=== PATIENT | male | born 1960 | race Caucasian/White ===

== ENCOUNTER 2020-01-09 04:59 | Inpatient (IN) ==
--- NOTE | 2019-12-29 12:12 | History & Physical Report ---
Date of Service December 29, 2019 Assessment & Plan (1) Myelopathy concurrent with and due to spinal stenosis of cervical region: At this time the patient demonstrates with evidence of progressive cervical spinal stenosis with instability and subsequent myelopathy. Subsequently recommending urgent surgery in the form of C4 corpectomy and ACDF C5-C6. Hopefully this will halt the progression of his myelopathic symptoms with time again increased to function and decreased pain. Avoiding Present on Admission?: Yes History of Present Illness Chief Complaint: Bilateral arm numbness weakness. Primary Care Provider: Hemanth Elizalde This is a 59-year-old male who presents with worsening function of the bilateral upper extremities. He notes his left arm worse than the right. He has pain radiating down his arms into all fingertips. This concludes a component of numbness. Describes loss of coordination and fine motor skills. Allergies Allergy/AdvReac Type Severity Reaction Status Date / Time No Known Allergies Allergy Verified 11/13/19 12:16 Home Medications Home Medications Medication Instructions Recorded Confirmed Type amitriptyline 50 mg PO HS 11/13/19 11/13/19 History bupropion HCl 300 mg PO QAM 11/13/19 11/13/19 History buspirone 10 mg PO BID 11/13/19 11/13/19 History cholecalciferol (vitamin D3) 1,000 unit PO DAILY 11/13/19 11/13/19 History duloxetine 30 mg PO QID 11/13/19 11/13/19 History empagliflozin 25 mg PO QAM 11/13/19 11/13/19 History gabapentin 800 mg PO QID 11/13/19 11/13/19 History lisinopril 10 mg PO QAM 11/13/19 11/13/19 History lorazepam 0.5 mg PO TID PRN 11/13/19 11/13/19 History metformin 1,000 mg PO BID 11/13/19 11/13/19 History orphenadrine citrate 100 mg PO BID 11/13/19 11/13/19 History oxycodone 30 mg PO QID 11/13/19 11/13/19 History pantoprazole 40 mg PO QAM 11/13/19 11/13/19 History pioglitazone 45 mg PO QAM 11/13/19 11/13/19 History ranitidine HCl 150 mg PO HS 11/13/19 11/13/19 History simvastatin 10 mg PO PM 11/13/19 11/13/19 History tamsulosin 0.4 mg PO HS 11/13/19 11/13/19 History zolpidem 10 mg PO HS 11/13/19 11/13/19 History Past Med/Surg History Medical History (Updated 12/29/19 @ 12:11 by Allan Reddy DO) Anxiety BPH (benign prostatic hyperplasia) Depression Diabetes mellitus, type 2 Stable and controlled. Hgb A1C around 7.1 (10/2019) per patient GERD (gastroesophageal reflux disease) Well controlled and stable Hyperlipidemia Hypertension Numbness R/T CERVICAL SPINE ISSUES -- WEAK HAND LEFT Osteoarthritis Sleep apnea S/p UPPP surgery - did not have repeat test - no machine currently Surgical History (Updated 11/13/19 @ 12:38 by Tracie Cardenas RN) History of back surgery X3 History of carpal tunnel release of both wrists History of knee replacement procedure of left knee X2 History of knee replacement procedure of right knee X2 History of total right hip replacement History of uvulopalatopharyngoplasty Hx of colonoscopy Hx of shoulder surgery RIGHT Social History Preferred Language: Occitan Communication Ability: Effective Beliefs That Will Affect Care: None Current Living Situation: Spouse Feels Safe at Home: Yes Smoking Status: Current every day smoker (Smoking x 25 years ) Tobacco Type: cigarettes ; Cigarettes Per Day: 10 cigarrettes ; Second Hand Exposure: No ; Hx Alcohol Use: No Hx Substance Use: No Physical Exam Physical Exam: Patient is alert and oriented On exam he has hyperreflexive to both upper and lower extremity testing. Is bilateral Beth signs. His sensation appears to be symmetric and intact. He has weakness to bilateral grasp. Biceps and triceps are symmetric and intact. Heart is regular rate and rhythm Lungs clear to auscultation Results & Data Diagnostic Findings Cervical x-rays demonstrate multilevel spondylosis and loss of cervical lordosis. There is evidence of anterior listhesis at C3-4 and C4-5. MRI also demonstrates loss of cervical lordosis with evidence of neurocompression most impressive at C3-C4.
--- NOTE | 2020-01-04 19:44 | Anesthesiology Consultation ---
Date of Service January 04, 2020 Assessment & Plan (1) Encounter for pre-operative examination: PCP Clearance 11/22/19 = "Medically cleared for surgery pending preop testing." Addendum on 11/26/19= "labs, EKG, CXR all acceptable." L3-4 decompression, removal of hardware L2-S1 08/07/16= GA- Grade 1 view with MAC #3 with ETT #8.0- no issues noted per anesthesia record Ketamine Protocol = Pt current taking Oxycodone 30mg QID- therefore- pt is a candidate for Ketamine Protocol. Order written for DOS and will inform OR to plan for patient to be in ICU postoperatively. Will confirm with Dr. Mueller that, given covid crisis, ketamine protocol still being utilized. Chart Review Chart Review: Acceptable Risk for Surgery, entry level management initiated (by Martin Ochoa PA-C) and Patient seen in Pre Admission Testing (By Cristal Partida PA-C on 11/21/19) Teaching & Discussion Instructed NPO after midnight before surgery, except medications with 15 cc of water. Medication instructions provided according to the PAT guidelines. History Surgery Operation Date: 01/09/20 07:15 Proposed Procedures p C5-C6 Anterior Cervical Discectomy and Fusion, C4 Corpectomy, Spinal Cord Monitoring - Allan Reddy, Height/Weight Height: 5 ft 10 in Weight: 136.078 kg Allergies Allergy/AdvReac Type Severity Reaction Status Date / Time No Known Allergies Allergy Verified 01/04/20 12:12 Medications Home Medications Medication Instructions Recorded Confirmed Last Taken amitriptyline 50 mg PO HS 11/13/19 01/04/20 Unknown bupropion HCl 300 mg PO QAM 11/13/19 01/04/20 Unknown buspirone 10 mg PO BID 11/13/19 01/04/20 Unknown cholecalciferol (vitamin D3) 1,000 unit PO DAILY 11/13/19 01/04/20 Unknown duloxetine 30 mg PO QID 11/13/19 01/04/20 Unknown empagliflozin 25 mg PO QAM 11/13/19 01/04/20 Unknown gabapentin 800 mg PO QID 11/13/19 01/04/20 Unknown lisinopril 10 mg PO QAM 11/13/19 01/04/20 Unknown lorazepam 0.5 mg PO TID PRN 11/13/19 01/04/20 Unknown metformin 1,000 mg PO BID 11/13/19 01/04/20 Unknown orphenadrine citrate 100 mg PO BID 11/13/19 01/04/20 Unknown oxycodone 30 mg PO QID 11/13/19 01/04/20 Unknown pantoprazole 40 mg PO QAM 11/13/19 01/04/20 Unknown pioglitazone 45 mg PO QAM 11/13/19 01/04/20 Unknown ranitidine HCl 150 mg PO HS 11/13/19 01/04/20 Unknown simvastatin 10 mg PO PM 11/13/19 01/04/20 Unknown tamsulosin 0.4 mg PO HS 11/13/19 01/04/20 Unknown zolpidem 10 mg PO HS 11/13/19 01/04/20 Unknown Past Medical History Medical History Anxiety BPH (benign prostatic hyperplasia) Depression Diabetes mellitus, type 2 Stable and controlled. Hgb A1C around 7.1 (10/2019) per patient GERD (gastroesophageal reflux disease) Well controlled and stable Hyperlipidemia Hypertension Numbness R/T CERVICAL SPINE ISSUES -- WEAK HAND LEFT Osteoarthritis Sleep apnea S/p UPPP surgery - did not have repeat test - no machine currently Exercise / Class Metabolic Activity III < 4 Walking/Shop/Light housework ("crawls up the stairs" due to back pain - no CP or SOB; no issues with flat surface ambulation) Past Anesthesia History No Hx of Anesthesia Complications (no known anesthesia issues- post op complications s/p UPPP- "lungs filled with blood") and No Family Hx of Anesthesia Complications History of PONV No Hx of PONV and No Hx of Motion Sickness Social History Smoking Status: Current every day smoker tobacco type: cigarettes Smoking cigarettes per day: 10 Do You Dip or Chew Tobacco: No Hx Alcohol Use: No Hx Substance Use: No substance use type: does not use Review of Systems Patient denies chest pain, shortness of breath, dyspnea on exertion, cough, wheezing, palpitations. Physical Exam Vital Signs BP 102/65 P 72 TEMP 98.1 SP02 97% RESP 16 Constitutional + morbidly obese; no acute distress ENMT Mouth: + loose teeth (Mild- to front top teeth ); no TMJ clicking Thyromental Distance: > or= 3.5 Finger Breadths (4.0) Mallampati Class: I Missing molars. Neck + limited neck extension (mild ) Respiratory normal respiratory effort; no respiratory distress Auscultation: lungs clear to auscultation bilaterally; no wheezes Cardiovascular Rate/Rhythm: regular rate and regular rhythm Heart Sounds: no murmur Vessels: no carotid bruit Musculoskeletal Spine: + pain with cervical ROM Neurologic moves all extremities Psychiatric Orientation: alert Testing Laboratory Results 11/21/19 WBC: 7.67 H/H: 13.0/39.7 PLATELETS: 203 SODIUM: 134 POTASSIUM: 4.7 CHLORIDE: 101 CO2: 32 BUN: 17 CREATININE: 0.93 GLUCOSE: 133 PT: 10.3 PTT: 28.8 INR: 1.0 UA: negative for bacteria TYPE AND SCREEN: O+, ab screen - Electrocardiogram Date: 11/21/19 Findings: + NSR @ (68bpm) Left axis deviation. No change from 07/24/16. Chest X-Ray Date: 11/21/19 Findings: + NAD Chronic change including unaltered chronic pulmonary vascular congestion. No acute or superimposed process. Mild stable cardiomegaly. Echocardiogram Date: 08/05/16 EF: 55% LV Function: normal RWMA: + none Other Findings: + LVH (Mild/concentric) Grade 1 diastolic dysfunction. Mild WI. Moderate right and left atrial enlargement, mild right ventricular enlargement. Aortic root is mildly dilated. Stress Test Date: 08/05/16 Type: nuclear Resting EF: 55% Resting LV Function: normal Resting RWMA: + none Based upon EKG criteria, this test is negative. Based upon the nuclear imaging findings there is no evidence of myocardial ischemia or myocardial infarction. Study is normal.
[2020-01-09] MEDS ORDERED: SODIUM CHLORIDE 0.9% 250 ML IV PRN (05:00)
[2020-01-09] MEDS ORDERED: GABAPENTIN 600 MG DOSE PO SCH (06:00)
[2020-01-09] MEDS ORDERED: CEFAZOLIN 3000MG 72.5 ML IV SCH (06:00)
[2020-01-09] MEDS ORDERED: LR 15ML/HR IV SCH (06:00)
[2020-01-09] MEDS ORDERED: CeleBREX 200 MG CAP PO SCH (06:00)
[2020-01-09] MEDS ORDERED: ACETAMINOPHEN 500 MG TAB PO SCH (06:00)
[2020-01-09] MEDS ORDERED: PROPOFOL IV EMULSION 10 MG/ML 100 ML VIAL IV ONE (06:36)
[2020-01-09] MEDS ORDERED: LIDOCAINE HCL 2% 2 ML VIAL/AMP(20MG/ML) INFIL ONE (06:48)
[2020-01-09] MEDS ORDERED: PROPOFOL IV EMULSION 10 MG/ML 20 ML VIAL IV ONE ×2 (06:48→09:44)
[2020-01-09] MEDS ORDERED: fentaNYL citrate 100 MCG/2 ML VIAL ONE ×3 (06:48→11:06)
[2020-01-09] MEDS ORDERED: ONDANSETRON INJ 2 MG/ML 2 ML VIAL ONE (06:48)
[2020-01-09] MEDS ORDERED: ROCURONIUM BROMIDE 10 MG/ML 5 ML VIAL ONE (06:48)
[2020-01-09] MEDS ORDERED: DEXAMETHASONE SOD INJ 4 MG/ML VIAL ONE (06:48)
[2020-01-09] MEDS ORDERED: MIDAZOLAM HCL 1 MG/ML 2ML VIAL ONE (06:49)
[2020-01-09] MEDS ORDERED: BACITRACIN INJ 50,000 UNIT VIAL ONE (06:57)
[2020-01-09] MEDS ORDERED: ePHEDrine sulfate 50 MG/ML AMP IV PRN (07:07)
[2020-01-09] MEDS ORDERED: ATROPINE SULFATE 0.1 MG/ML 10ML SYR IV PRN (07:07)
[2020-01-09] MEDS ORDERED: fentaNYL citrate 100 MCG/2 ML VIAL IV PRN (07:07)
[2020-01-09] MEDS ORDERED: ONDANSETRON INJ 2 MG/ML 2 ML VIAL IV PRN ×2 (07:07→12:24)
[2020-01-09] MEDS ORDERED: HYDROmorphone INJ 2 MG/ML SYR/VIAL IV PRN (07:07)
--- NOTE | 2020-01-09 07:18 | History & Physical Bridge Note ---
Date of Service January 09, 2020 History & Physical Bridge Note I have examined the patient, reviewed the History & Physical and in the interval since the performance of the History & Physical I have noted the following changes of clinical significance: no changes noted
[2020-01-09] MEDS ORDERED: KETAMINE HCL INJ 50 MG/ML 10 ML VIAL ONE (07:58)
[2020-01-09] MEDS ORDERED: VASOPRESSIN 20 UNIT/ML VIAL ONE (08:09)
[2020-01-09] MEDS ORDERED: PHENYLEPHRINE HCL 10 MG/ML VIAL ONE (08:25)
[2020-01-09] MEDS ORDERED: FLOSEAL HEMOSTATIC MATRIX 10ML TOP ONE (08:35)
[2020-01-09] MEDS ORDERED: LARYING-O-JET KIT (LTA) ONE (08:46)
--- NOTE | 2020-01-09 10:39 | Operative Report ---
Post Operative Report Pre & Post Diagnosis Operation Date: 01/09/20 07:15 Pre-Op Diagnosis: Cervical spinal stenosis with myeloradiculopathy Morbid obesity Post-Op Diagnosis: Same I identified the patient and participated in the time-out.: Yes Procedure Operation Date: 01/09/20 07:15 Actual Procedures #1 anterior cervical corpectomy C4. #2 anterior cervical discectomy with bilateral foraminotomies C5-6 and C6-7. #3 anterior cervical arthrodesis C3-C5, C5-C6 and C6 and C7. #4 placement peek cage 25 mm in height at C3-C5 titanium cage 9 mm in height at C5-C6 and 8 mm in height at C5-6 to C7. #5 placement 5 complete screws from C3-C7. #6 placement locally harvested morselized autograft combined with DBM within the interbody cages. Surgeon Allan Reddy, DO Archivist Economic History Donna Anderson Estimated Blood Loss 50 Findings See Below The patient is 5 foot 10 inches tall weighing over 141 kg with a BMI in excess of 44. The patient's body habitus did add significant technical difficulty from patient positioning throughout the actual procedure itself and at least 50% increase to the operative time and increasing the risks of postoperative complications. Specimens None Indications This is a 59-year-old male that presents with the above-mentioned diagnosis and progressive decline in neurologic status. Subsequently we moved forward with an urgent multilevel anterior cervical decompression and fusion. Description of Procedure Patient was met with preop we discussed all questions were addressed. At that time patient was taken back to the operative suite underwent an patient placed in the supine position on a Eddie table with head Chao cigar head pegger. All bony prominences well-padded eyes inspected to ensure no external pressure placed upon them. This point the anterior cervical spine was prepped and draped in a normal sterile fashion. I then created a longitudinal incision along the right anterior aspect of the cervical spine extending from the C3 to see 6 disc basis. Sharp dissection with assistance of bipolar electrocautery performed down to and exposing the cervical spine spine from the C3-4 disc space to the C6-7 disc space. I then performed a complete discectomy of C3-4 out to the uncovertebral joints bilaterally followed by c 4 5. [place] distracting pins were then placed in C3 and C5 distract across the C4 vertebral body. I then performed a complete corpectomy of C4 including removal of all posterior annular fibers and longitudinal ligament to include bilateral foraminotomies. A 25 mm peek cage filled with locally harvested morselized autograft and DBM was then tapped in position. Then proceeded to C5-6 level again complete discectomy performed out to the uncovertebral's bilaterally. I include removal of all posterior annular fibers and longitudinal ligament for complete decompression and foraminotomies. Endplates were then burred to subcortical bleeding bone and a 9 mm titanium cage filled with locally harvested morselized autograft and DBM tapped in position. Was able to access the C6-7 level. I was concerned we would not be able to do so secondary to the patient's body habitus. Nevertheless it was quite accessible. Subsequently proceeded to remove the disc at C6-7 out to the uncovertebral's bilaterally. Include removal of all posterior annular fibers and longitudinal ligament to perform bilateral foraminotomies. An 8 mm titanium cage filled with locally harvested morselized autograft and DBM was then tapped in position. All distracting apparatus was removed all anterior osteophytes burred to a smooth cortical surface and a 5 complete screws applied with the assistance of fluoroscopy. The incision was then copiously irrigated explored to ensure no damage to surrounding structures remaining bleeding. A 10 round JOHN drain inserted. Incision was then closed with 2 Vicryl in the fashion of 4 Monocryl for final skin closure. Steri-Strips dressings placed. Patient waken taken to PACU stable addition. Please note Donna Anderson was present at the entire procedure involved the patient positioning complex portions of the surgery and final skin closure. Lastly spinal cord monitoring was utilized that the procedure no changes noted. I attest to the content of the Intraoperative Record and any orders documented therein. Any exceptions are noted below.
--- NOTE | 2020-01-09 11:58 | Fluoroscopy Report ---
FL cervical 2-3V CLINICAL HISTORY: Anterior discectomy and fusion. COMPARISON STUDY: None. FLUOROSCOPY TIME: 12 seconds. FLUOROSCOPIC IMAGES: 2 FINDINGS: These images demonstrate a C4 corpectomy. Anterior fusion is noted from C3 through C7. Mult ilevel discectomy is noted with interbody graft placement. Surgical drain is noted. Endotracheal tube is partially imaged. IMPRESSION: Fluoroscopy provided for C3-C7 anterior discectomy and fusion. ACT 112: Negative or not required by law. Electronically signed by: Abdifatah Clemente M.D. 01/09/2020 11:56 AM
[2020-01-09] MEDS ORDERED: RACEPINEPHRINE 2.25% NEBU SOLN 0.5 ML VIAL INH PRN (12:24)
[2020-01-09] MEDS ORDERED: LORazepam 0.5 MG/1 ML VIAL IV PRN (12:24)
[2020-01-09] MEDS ORDERED: HYDROmorphone INJ 0.5 MG/0.5 ML SYR IV PRN (12:24)
[2020-01-09] MEDS ORDERED: ALUMINUM/MAGNESIUM SUSP 30 ML UDC PO PRN (12:24)
[2020-01-09] MEDS ORDERED: DEXAMETHASONE SOD PHOSPHATE 8 MG in SYRINGE 0 ML IV PRN (12:24)
[2020-01-09] MEDS ORDERED: LORazepam 0.5 MG TAB PO PRN ×2 (12:24)
[2020-01-09] MEDS ORDERED: NALOXONE HCL 0.4 MG/1 ML VIAL/CARP IV PRN (12:24)
[2020-01-09] MEDS ORDERED: ONDANSETRON 4 MG OD TAB PO PRN (12:24)
[2020-01-09] MEDS ORDERED: FAMOTIDINE 20 MG TAB PO PRN (12:24)
[2020-01-09] MEDS ORDERED: PROMETHAZINE HCL 12.5 MG in SODIUM CHLORIDE 0.9% 50 ML IV PRN (12:24)
[2020-01-09] MEDS ORDERED: HYDROmorphone INJ 1 MG/ML SYRINGE IV PRN (12:24)
[2020-01-09] MEDS ORDERED: DO NOT ADMINISTER FLU VACCINE PRN (12:24)
[2020-01-09] MEDS ORDERED: SOD PHOSPHATE/SOD BIPHOSPHATE ENEMA 132 ML BTL PR PRN (12:24)
[2020-01-09] MEDS ORDERED: ACETAMINOPHEN 500 MG TAB PO PRN (12:24)
[2020-01-09] MEDS ORDERED: DO NOT ADMINISTER PNEUMOCOCCAL VACCINE PRN (12:24)
[2020-01-09] MEDS ORDERED: METOCLOPRAMIDE HCL INJ 5 MG/ML 2 ML VIAL IV PRN (12:24)
[2020-01-09] MEDS ORDERED: MAGNESIUM HYDROXIDE SUSP 30 ML UDC PO PRN (12:24)
[2020-01-09] MEDS ORDERED: ACETAMINOPHEN 1,000 MG/100 ML VIAL IV PRN (12:24)
[2020-01-09] MEDS: SODIUM CHLORIDE 0.9% 1000ML 1,000 ML IV SCH ×2 (12:53→19:16)
[2020-01-09] MEDS: GABAPENTIN 800 MG TAB PO SCH ×3 (13:39→20:32)
[2020-01-09] MEDS: POLYETHYLENE (MIRALAX) 17 GM PACK PO SCH ×2 (13:39→17:45)
[2020-01-09] MEDS: OXYCODONE HCL IR 30 MG TAB (IMMEDIATE RELEASE) PO PRN ×2 (13:39→17:50)
[2020-01-09] MEDS: DULOXETINE HCL 30 MG CAP PO SCH ×3 (13:39→20:32)
[2020-01-09] MEDS ORDERED: PHARMACY GLYCEMIC MGMT CONSULT PRN (13:42)
--- NOTE | 2020-01-09 13:44 | Anesthesiology Progress Note ---
Date of Service January 09, 2020 Anesthesia Post Procedure Vital Signs Vital Signs: Temp Pulse Pulse Resp BP Pulse Ox 01/09/20 13:13 36.6 C 88 16 131/85 95 01/09/20 12:42 36.6 C 86 16 122/73 95 01/09/20 12:13 36.6 C 88 18 133/80 96 01/09/20 11:50 37.4 C 88 17 137/73 96 01/09/20 11:40 87 16 111/75 97 01/09/20 11:30 88 12 131/75 97 01/09/20 11:20 87 12 140/75 97 01/09/20 11:10 37.2 C 89 12 139/78 97 01/09/20 06:05 36.8 C 89 20 144/81 H 97 Pain Intensity Lower Back: Pain Intensity: 7 Neck: Pain Intensity: 7 Transfer of Care Handoff Completed per policy Notes Mental Status: alert / awake / arousable and participated in evaluation Patient Amnestic to Procedure: Yes Nausea / Vomiting: adequately controlled Pain: adequately controlled Airway Patency, RR, SpO2: stable & adequate BP & HR: stable & adequate Hydration State: stable & adequate Anesthetic Complications: no major complications apparent and Pt Satisfied with anesthetic care
[2020-01-09] MEDS ORDERED: DEXTROSE 50% 50 ML SYRINGE IV PRN (14:00)
[2020-01-09] MEDS ORDERED: GLUCOSE 10 TABS/TUBE PO PRN (14:00)
[2020-01-09] MEDS ORDERED: CARBOHYDRATES FOR HYPOGLYCEMIA PO PRN (14:00)
[2020-01-09] MEDS ORDERED: GLUCAGON FOR INJ 1 MG VIAL SQ PRN (14:00)
[2020-01-09] MEDS ORDERED: GLUCOSE 40% GEL 15 GM TUBE PO PRN (14:00)
[2020-01-09] MEDS ORDERED: INSULIN GLARGINE SOLOSTAR 100 UNITS/ML 3 ML PEN SC ONE (14:15)
--- NOTE | 2020-01-09 14:32 | Consultation ---
Date of Consultation January 09, 2020 Assessment & Plan (1) Status post lumbar surgery: Post op day# 0 S/P ACDF C3-C7 by Dr Maureen RICCI# 50ml Post op doing well -pain management per ortho -wound management per ortho -PT/OT as appropriate -DVT prophylaxis per ortho -monitor H&H for acute blood loss anemia; pre-op Hgb: 13 (2) Diabetes mellitus, type 2: -Hold home oral meds -Insulin sliding scale, glycemic pharmacy on board (3) Hypertension: -Hold lisinopril and monitor BP, reasses in AM (4) Hyperlipidemia: -Continue simvastatin (5) Anxiety: -Continue duloxetine, Wellbutrin, buspirone (6) GERD (gastroesophageal reflux disease): -Continue PPI, H2 ryan (7) BPH (benign prostatic hyperplasia): -Continue tamsulosin DVT Prophylaxis -SCDs per ortho Disposition per primary service Follows with Dr Elizalde in [place], [place] for routine care Pt was seen and care coordinated with Dr Morel. See addendum Thank you for this consultation. We will follow the patient with you during their hospital stay. You can reach a [facility] of [facility] via pager @ [phone]. Supervising Physician Co-Signing Physician Notes I saw this patient with the physician patent legal assistant, I participated in the history, physical, review of systems, and physical exam. I reviewed the medications with the patient and the physician patent legal assistant and helped reconcile the medications. I helped take a detailed family and social history as well. I formulated the assessment and plan personally with the physician patent legal assistant and went over it with the patient. Physical Exam Gen-AAO x 3, NAD, Afebrile, +L Anterior Neck Incision c Drain in place, Obese Head-NCAT, EOMI, PERRLA, Anicteric Sclera, No Posterior Pharyngeal Erythema Neck-Supple, No JVD, No Thyromegaly, No Masses, No LAD, No Bruits Lungs-Clear to Auscultation Bilaterally, No Rales, No Rhonchi, No Wheezing, No Crepitus Chest-No S4, +S1, +S2, No S3, No Murmurs, No Rubs, No Gallops, No Ectopy Abdomen-Soft, Bowel Sounds Present, Non Tender, Non Distended, No Hepatomegaly, No Splenomegaly, No Palpable Masses, No Rebound, No Rigidity, No Guarding Musculoskeletal-Full Range of Motion Bilaterally, No CVAT Extremities-No Cyanosis, No Clubbing, No Edema Nuero-Cranial Nerves II-XII grossly intact, Motor WNL, DTRs WNL, Strength WNL, Non Focal Psych-Normal Mood History of Present Illness Requesting Physician: Dr Reddy Reason for Consultation: Post op medical management Attending Physician: Allan Reddy, DO History of Present Illness Pt is 59 y/o M with PMH DM II, HTN, HLD, anxiety, GERD, BPH seen in medical consultation s/p ACDF C3-C7 today by Dr. Reddy. Postop patient doing well and reports pain control. Denies any upper or lower extremity pain or paresthesias. Denies nausea, vomiting, chest pain, shortness of breath. Tolerating fluids without difficulty or choking. Had [place] cath which patient reports was just recently removed, has not urinated yet since. Reports had normal BM this morning. Denies fever/chills, diaphoresis, N/V/D/C, [place], dizziness, syncope, vision changes, orthopnea, palpitations, cough, sore throat, choking, otalgia, rhinorrhea, abdominal pain, extremity weakness, extremity edema, rashes. Allergies Allergy/AdvReac Type Severity Reaction Status Date / Time No Known Allergies Allergy Verified 01/09/20 05:23 Home Medications Home Medications Medication Instructions Recorded Confirmed Type amitriptyline 50 mg PO HS 11/13/19 01/09/20 History bupropion HCl 300 mg PO QAM 11/13/19 01/09/20 History buspirone 10 mg PO BID 11/13/19 01/09/20 History cholecalciferol (vitamin D3) 1,000 unit PO DAILY 11/13/19 01/09/20 History duloxetine 30 mg PO QID 11/13/19 01/09/20 History empagliflozin 25 mg PO QAM 11/13/19 01/09/20 History gabapentin 800 mg PO QID 11/13/19 01/09/20 History lisinopril 10 mg PO QAM 11/13/19 01/09/20 History lorazepam 0.5 mg PO TID PRN 11/13/19 01/09/20 History metformin 1,000 mg PO BID 11/13/19 01/09/20 History orphenadrine citrate 100 mg PO BID 11/13/19 01/09/20 History oxycodone 30 mg PO QID 11/13/19 01/09/20 History pantoprazole 40 mg PO QAM 11/13/19 01/09/20 History pioglitazone 45 mg PO QAM 11/13/19 01/09/20 History ranitidine HCl 150 mg PO HS 11/13/19 01/09/20 History simvastatin 10 mg PO PM 11/13/19 01/09/20 History tamsulosin 0.4 mg PO HS 11/13/19 01/09/20 History zolpidem 10 mg PO HS 11/13/19 01/09/20 History Patient History Medical History Anxiety BPH (benign prostatic hyperplasia) Depression Diabetes mellitus, type 2 Stable and controlled. Hgb A1C around 7.1 (10/2019) per patient GERD (gastroesophageal reflux disease) Well controlled and stable Hyperlipidemia Hypertension Numbness R/T CERVICAL SPINE ISSUES -- WEAK HAND LEFT Osteoarthritis Sleep apnea S/p UPPP surgery - did not have repeat test - no machine currently Surgical History History of back surgery X3 History of carpal tunnel release of both wrists History of knee replacement procedure of left knee X2 History of knee replacement procedure of right knee X2 History of total right hip replacement History of uvulopalatopharyngoplasty Hx of colonoscopy Hx of shoulder surgery RIGHT Family History (Updated 01/09/20 @ 14:33 by Sindy Camejo PA-C) Other Hypertension Social History Preferred Language: Beninese Communication Ability: Effective Checker Cashier Required: No Beliefs That Will Affect Care: None Current Living Situation: Spouse Other Information That Helps Us Care for You: No Feels Safe at Home: Yes Safety Concerns: Feels Safe At This Time Smoking Status: Current every day smoker Tobacco Type: cigarettes ; Cigarettes Per Day: 10 ; Do You Dip or Chew Tobacco: No ; Second Hand Exposure: No ; Tobacco Cessation Education Requested by Patient: No Hx Alcohol Use: No Hx Substance Use: No Review of Systems Review of Systems: All systems reviewed & are unremarkable except as noted in HPI & below Physical Exam Physical Exam: General: no distress, obese Head: normocephalic, atraumatic Eyes: PERRL, EOM's intact, conjunctiva non-injected, anicteric ENT: normal inspection external ears, nose, mucous membranes moist Neck: supple, trachea midline, +surgical dressing dry and intact to anterior neck, JOHN drain in place with serosanguineous drainage Lungs: clear, no respiratory distress, no wheezing/rhonchi/rales CV: RRR, no murmur, no pretibial edema Abd: normal BS, soft, non-tender Ext: no cyanosis, no calf tenderness; distal pulses intact, sensation to light touch intact, ROM upper and lower extremities intact Neuro: A&O x 3, no focal deficits noted, normal affect Skin: warm, dry Results & Data ([facility]) Vital Signs (Past 12 Hours) Vital Signs Temp Pulse Pulse Resp BP Pulse Ox 01/09/20 14:10 36.7 C 83 18 130/72 96 01/09/20 13:13 36.6 C 88 16 131/85 95 01/09/20 13:02 90 14 96 01/09/20 12:42 36.6 C 86 16 122/73 95 01/09/20 12:13 36.6 C 88 18 133/80 96 01/09/20 11:50 37.4 C 88 17 137/73 96 01/09/20 11:40 87 16 111/75 97 01/09/20 11:30 88 12 131/75 97 01/09/20 11:20 87 12 140/75 97 01/09/20 11:10 37.2 C 89 12 139/78 97 01/09/20 06:05 36.8 C 89 20 144/81 H 97
[2020-01-09] MEDS: HYDROCODONE/ACETAMOPHEN 5/325MG TAB PO PRN ×2 (16:13→20:41)
[2020-01-09] MEDS: CEFAZOLIN 2000MG 2,000 MG/15 ML SYR IV SCH (16:14)
[2020-01-09] MEDS: DEXAMETHASONE SOD PHOSPHATE 6 MG in SYRINGE 0 ML IV SCH (16:21)
[2020-01-09] MEDS: INSULIN ASPART 100 UNITS/ML 3 ML PEN SC SCH ×3 (17:53→20:46)
[2020-01-09] MEDS: ORPHENADRINE CITRATE 100 MG TABCR PO SCH (20:32)
[2020-01-09] MEDS ORDERED: TAMSULOSIN HCL 0.4 MG CAP PO SCH (21:00)
[2020-01-09] MEDS ORDERED: DOCUSATE SODIUM/SENNA 50/8.6MG TAB PO SCH (21:00)
[2020-01-09] MEDS ORDERED: ZOLPIDEM TARTRATE 10 MG TAB PO SCH (21:00)
[2020-01-09] MEDS ORDERED: SIMVASTATIN 10 MG TAB PO SCH (21:00)
[2020-01-09] MEDS ORDERED: FAMOTIDINE 20 MG TAB PO SCH (21:00)
[2020-01-09] MEDS ORDERED: AMITRIPTYLINE HCL 50 MG TAB PO SCH (21:00)
[2020-01-10] MEDS: DEXAMETHASONE SOD PHOSPHATE 6 MG in SYRINGE 0 ML IV SCH ×2 (00:15→07:50)
[2020-01-10] MEDS: CEFAZOLIN 2000MG 2,000 MG/15 ML SYR IV SCH (00:15)
[2020-01-10] MEDS: POLYETHYLENE (MIRALAX) 17 GM PACK PO SCH ×3 (00:16→12:20)
[2020-01-10] MEDS: INSULIN ASPART 100 UNITS/ML 3 ML PEN SC SCH ×4 (01:30→12:23)
[2020-01-10] MEDS: SODIUM CHLORIDE 0.9% 1000ML 1,000 ML IV SCH (01:46)
[2020-01-10] MEDS: OXYCODONE HCL IR 30 MG TAB (IMMEDIATE RELEASE) PO PRN ×2 (03:18→09:27)
[2020-01-10 07:04] LABS: Estimated Average Glucose 174 mg/dl; Hemoglobin A1C 7.7 % (4.5-5.6)
[2020-01-10] MEDS: HYDROCODONE/ACETAMOPHEN 5/325MG TAB PO PRN ×2 (07:49→12:19)
[2020-01-10] MEDS ORDERED: PIOGLITAZONE 45 MG PO SCH (09:00)
[2020-01-10] MEDS ORDERED: lisinopriL 10 MG TAB PO SCH (09:00)
[2020-01-10] MEDS ORDERED: PANTOprazole 40 MG TAB PO SCH (09:00)
[2020-01-10] MEDS ORDERED: INSULIN GLARGINE SOLOSTAR 100 UNITS/ML 3 ML PEN SC SCH (09:00)
[2020-01-10] MEDS ORDERED: BuPROPion XL 300 MG TABCR PO SCH (09:00)
[2020-01-10] MEDS ORDERED: NON-FORMULARY MEDICATION (Empagliflozin 25 MG) PO SCH (09:00)
[2020-01-10 09:24] VITALS: TEMP 98.4
[2020-01-10] MEDS: ORPHENADRINE CITRATE 100 MG TABCR PO SCH (09:26)
[2020-01-10] MEDS: GABAPENTIN 800 MG TAB PO SCH ×2 (09:26→12:21)
[2020-01-10] MEDS: DULOXETINE HCL 30 MG CAP PO SCH ×2 (09:26→12:21)
--- NOTE | 2020-01-10 10:48 | Discharge Summary ---
Date of Service January 10, 2020 Admission HPI Per Admitting Provider This is a 59-year-old male who presents with worsening function of the bilateral upper extremities. He notes his left arm worse than the right. He has pain radiating down his arms into all fingertips. This concludes a component of numbness. Describes loss of coordination and fine motor skills. Principal Diagnosis Cervical spinal stenosis with myeloradiculopathy Discharge Data Allergies Allergy/AdvReac Type Severity Reaction Status Date / Time No Known Allergies Allergy Verified 01/09/20 05:23 Consultations 01/09/20 12:24 Consult Hospitalist Routine Procedures Performed Operation Date: 01/09/20 07:15 Actual Procedures p C3-C7 Anterior Cervical Discectomy and Fusion, C5-C6, C6-C7 Corpectomy, Spinal Cord Monitoring(Not Applicable) - Allan Reddy DO Ordered Studies 01/09/20 07:00 FL cervical 2-3V Routine FL fluoroscopy <1hr Routine Hospital Course (1) Myelopathy concurrent with and due to spinal stenosis of cervical region: Patient went multilevel anterior cervical discectomy decompression and fusion tolerated as well as taken orthopedic for postoperative. Postop day 1 he felt his arm symptoms were improved. He is swallowing well. No hoarseness. JOHN drain decreasing appropriately. Excellent strength testing. Subsequently discharged home. Discharge orders instructions from the chart for further review. Total Time Total Time Spent Total Time Spent (In Minutes): 20 minutes Discharge Plan Discharge Items Patient Disposition: Home - Self-Care Reason For Visit: SPINAL STENOSIS, CERVICAL REGION Discharge Diagnosis: Cervical spinal stenosis with myeloradiculopathy Activity: As commented below Non-emergency contact: Primary Care Provider Call non-emergency contact if: you have any medication questions Follow-up/Referrals: Hemanth Elizalde D.O. [Primary Care Provider] - Diet: Regular Addtl Attending Provider Instructions: ACTIVITY RECOMMENDATIONS: SELF CARE INSTRUCTIONS AFTER CERVICAL FUSIONS 1. No smoking. Smoking drastically decreases the chance of a solid fusion. 2. No bending, lifting more than 5 pounds, or twisting (roll like a log when turning in bed). 3. You may shower 3 days after surgery. Thoroughly dry wound. Do not soak in the tub. 4. Cervical collar: Must be worn at all times including sleeping. You may remove the brace only to bath, eat and if you are sitting in a recliner. 5. Please walk as much as you can for exercise. Gradually increase the distance that you walk as your endurance increases. SPECIAL CARE INSTRUCTIONS: VERY IMPORTANT TO READ AND REVIEW A. Do not take any anti-inflammatory medications (i.e. Indocin, Advil, Aspirin, Naprosyn, Aleve, Motrin, etc.) as these may inhibit the chance of a solid fusion. Tylenol is okay to take. B. Your surgical incision has been closed with a cosmetic suture under the skin that will dissolve in about 6 weeks. In 14 days, you can use a pair of clean scissors and cut the suture that is left outside of the skin at the ends of your incision. C. Complications are uncommon, but please contact us if you have any signs or symptoms of: 1. wound infection (fever higher than 102.5 degrees F, redness, separation of wound, drainage, or increasing pain from the incision) 2. blood clots in legs (pain, swelling, redness and warmth in legs) 3. urinary tract infection (fever higher than 102.5 degrees, burning upon urination or increased frequency of urination) 4. nerve problems (inability to walk on your toes or heels, numbness, loss of bowel or bladder control) 5. any other symptoms that concern you. D. Please call the office at if you have any concerns or questi ons about your operation or recovery. MANAGING PAIN AFTER SPINAL SURGERY 1. Narcotic medication is intended for short-term use and will be provided for surgical pain. Surgical pain usually lasts for a period of 4-6 weeks. Narcotic medication includes Percocet, Vicodin, Darvocet, Tylenol #3 or Lortab. 2. Longer-term pain is more appropriately treated with non-narcotic medication such as Tylenol ES. 3. Muscle spasm is not appropriately treated with narcotics. Muscle relaxers such as Soma, Flexeril or Skelaxin can be used along with Tylenol ES. 4. Remember that we all live with some "aches and pains". This is not unusual or uncommon after an injury or as we get older. 5. We will provide appropriate medication within the normal guidelines of their prescribed use. We will also be very cautious and aware of potential abuse and extended duration of patients' medication needs. 6. Please allow 2-3 days to process refills. Prescriptions will not be mailed but must be picked up at the office. FOLLOW UP VISIT: Keep your scheduled follow-up appointment. Any questions, please call the office at . Pending Studies at Discharge: No Stand-Alone Forms: My [facility], Smoking Cessation Medications and DC Order Prescriptions: New oxycodone 5 mg tablet 5 mg PO Q6H PRN (Reason: pain, severe) Qty: 20 RF: 0 Continued metformin 500 mg Tablet 1,000 mg PO BID RF: 0 gabapentin 800 mg Tablet 800 mg PO QID RF: 0 oxycodone 30 mg Tablet 30 mg PO QID RF: 0 lisinopril 20 mg Tablet 10 mg PO QAM RF: 0 simvastatin 10 mg Tablet 10 mg PO PM RF: 0 pioglitazone 45 mg Tablet 45 mg PO QAM RF: 0 amitriptyline 50 mg Tablet 50 mg PO HS RF: 0 lorazepam 0.5 mg Tablet 0.5 mg PO TID PRN (Reason: PANIC ATTACKS) RF: 0 tamsulosin 0.4 mg Capsule 0.4 mg PO HS RF: 0 pantoprazole 40 mg Tablet,Delayed Release (Dr/Ec) 40 mg PO QAM RF: 0 ranitidine HCl 150 mg Tablet 150 mg PO HS RF: 0 buspirone 10 mg Tablet 10 mg PO BID RF: 0 orphenadrine citrate 100 mg Tablet Extended Release 100 mg PO BID RF: 0 zolpidem 10 mg Tablet 10 mg PO HS RF: 0 bupropion HCl 300 mg Tablet Extended Release 24 Hr 300 mg PO QAM RF: 0 duloxetine 30 mg Capsule,Delayed Release(Dr/Ec) 30 mg PO QID RF: 0 cholecalciferol (vitamin D3) 25 mcg (1,000 unit) Tablet 1,000 unit PO DAILY RF: 0 empagliflozin 25 mg Tablet 25 mg PO QAM RF: 0 Discharge Orders: Discharge Order (Routine); Ordered 01/10/20 Ordered By: Allan Bach/Other Patient Handouts: Diabetes Type 2 Managing Admission Data Admit Date/Time: 01/09/20 11:14 Attending Provider: Allan Reddy Admit Provider: Allan Reddy Primary Care Provider: Hemanth Elizalde Other Providers: Dick Arshad
[2020-01-10 11:42] VITALS: O2SAT 96
[2020-01-10 11:47] VITALS: PULSE 72
[2020-01-10 12:04] VITALS: BP 123/66
--- NOTE | 2020-01-10 13:43 | Hospitalist Progress Note ---
Date of Service January 10, 2020 Assessment & Plan (1) Status post lumbar surgery: S/P multilevel anterior cervical discectomy decompression and fusion POD #1 Orthopedic surgery on board pain is controlled Continue wound care Activity as per Ortho (2) Diabetes mellitus, type 2: Hold home oral meds while hospitalized Insulin sliding scale, glycemic pharmacy on board Monitor BGs (3) Hypertension: Resume lisinopril (4) Hyperlipidemia: Continue simvastatin (5) Anxiety: Continue duloxetine, Wellbutrin, buspirone (6) GERD (gastroesophageal reflux disease): Continue PPI, H2 ryan (7) BPH (benign prostatic hyperplasia): Continue tamsulosin DVT Px As per Ortho Disposition As per primary service Admission and Anticipated Discharge Date Admission Date: January 09, 2020 Subjective Patient is seen and examined at bedside Neck pain is well controlled Offers no other complaints Eager to get discharged Denies any chest pain, shortness of breath, dizziness, nausea, abdominal pain Review of Systems Review of Systems: All systems reviewed & are unremarkable except as noted in HPI & below Physical Exam Physical Exam: Physical Exam: Vitals signs as noted above General Appearance:Moderately built and nourished, no apparent distress Head: normocephalic, Atraumatic Eyes: normal inspection, EOMI Neck: supple, Trachea midline, +Neck collar, +drain Respiratory/Chest: Normal breath sounds, CTA Cardiovascular: S1, S2, No murmur Abdomen/GI:Soft, Non tender, Bowel sounds present Extremities/Musculoskelatal:normal inspection, no edema Neurologic/Psych:AAOX3, grossly no focal neurological deficits Skin: normal color, warm Results & Data Results & Data ([facility]) Vital Signs (Past 12 Hours) Vital Signs Temp Pulse Pulse Resp BP BP Pulse Ox 01/10/20 12:02 36.9 C 72 18 123/66 96 01/10/20 11:15 36.9 C 72 18 132/73 96 01/10/20 11:07 94 H 17 96 01/10/20 09:20 36.9 C 65 16 134/80 93 01/10/20 07:43 36.8 C 64 18 135/80 97 01/10/20 07:10 66 15 94 01/10/20 05:15 36.6 C 64 18 147/82 H 95 01/10/20 03:41 69 16 96 01/10/20 03:15 36.7 C 61 16 141/82 H 95
[2020-01-11] MEDS ORDERED: bisacodyL 10 MG SUPP PR PRN (10:41)
== END 2020-01-10 13:05 | disposition home or self-care (01) | DRG 472 ==
LOC: ASU 04:59 → 3E 11:14

== ENCOUNTER 2021-03-28 05:42 | Inpatient (IN) ==
--- NOTE | 2021-03-11 13:33 | PAT Medication Instructions ---
Medication Instructions Date of Service March 11, 2021 Home Medications amitriptyline 50 mg PO HS bupropion HCl 300 mg PO QAM buspirone 10 mg PO BID cholecalciferol (vitamin D3) 1,000 unit PO QAM duloxetine 30 mg PO QID empagliflozin [Jardiance] 25 mg PO QAM gabapentin 800 mg PO QID lisinopril 10 mg PO QAM lorazepam 0.5 mg PO TID PRN metformin 1,000 mg PO BID oxycodone 30 mg PO QID pantoprazole 40 mg PO QAM pioglitazone [Actos] 45 mg PO QAM simvastatin 10 mg PO PM tamsulosin 0.4 mg PO HS semaglutide [Ozempic] 0.5 mg SUBCUT WK Continue as directed semaglutide [Ozempic] 0.5 mg SUBCUT WK DO NOT take the morning of surgery cholecalciferol (vitamin D3) 1,000 unit PO QAM empagliflozin [Jardiance] 25 mg PO QAM lisinopril 10 mg PO QAM metformin 1,000 mg PO BID pioglitazone [Actos] 45 mg PO QAM Take morning of surgery With a small sip of water, OTHERWISE NOTHING TO EAT OR DRINK AFTER MIDNIGHT: bupropion HCl 300 mg PO QAM buspirone 10 mg PO BID duloxetine 30 mg PO QID gabapentin 800 mg PO QID lorazepam 0.5 mg PO TID PRN (if needed) oxycodone 30 mg PO QID (okay to take up to 4 hours prior to surgery if needed) pantoprazole 40 mg PO QAM Take evening before surgery amitriptyline 50 mg PO HS buspirone 10 mg PO BID duloxetine 30 mg PO QID gabapentin 800 mg PO QID lorazepam 0.5 mg PO TID PRN (if needed) metformin 1,000 mg PO BID oxycodone 30 mg PO QID simvastatin 10 mg PO PM tamsulosin 0.4 mg PO HS Other Notes If you have any questions please call us at [phone] or [phone] or [phone] or [phone]
--- NOTE | 2021-03-14 10:32 | Anesthesiology Consultation ---
Date of Service March 14, 2021 Assessment & Plan (1) Encounter for pre-operative examination: - Awaiting cardiology-ordered stress test and final cardiology clearance. - COVID screening: Per assessment on 03/14: Travel screen negative, no known COVID-19 positive contacts. Patient vaccinated. Patient reports cough x approximately one week- he states this has been progressively improving and now is only an occasional "tickle" with dry cough. Patient advised to contact PCP/PAT if cough persistent/worsening prior to surgery. Surgeon arranging preop COVID testing. Awaiting results. - Check BSG AM DOS - S/P C4 corpectomy, C5-C6 ACDF (01/09/20): Grade 1 view, glidescope #4, ETT 7.5, atraumatic attempt x1 at [facility] Chart Review Chart Review: Patient seen in Pre Admission Testing Teaching & Discussion Pre-Anesthesia Teaching/Discussion Notes: Instructed NPO after midnight before surgery,except medications with 15 cc of water. Medication instructions provided according to the PAT guidelines. History Surgery Operation Date: 03/28/21 09:15 Proposed Procedures p Spine; C7-T1 Posterior Cervical Decompression, C5-T3 Fusion, Spinal Cord Monitoring - Allan Reddy, Height/Weight Height: 5 ft 11 in Weight: 134.8 kg Allergies Allergy/AdvReac Type Severity Reaction Status Date / Time No Known Allergies Allergy Verified 03/11/21 11:20 Medications Home Medications Medication Instructions Recorded Confirmed Last Taken amitriptyline 50 mg PO HS 11/13/19 03/11/21 01/08/20 21:00 bupropion HCl 300 mg PO QAM 11/13/19 03/11/21 01/09/20 03:30 buspirone 10 mg PO BID 11/13/19 03/11/21 01/09/20 03:30 cholecalciferol (vitamin D3) 1,000 unit PO QAM 11/13/19 03/11/21 01/08/20 duloxetine 30 mg PO QID 11/13/19 03/11/21 01/09/20 03:30 empagliflozin [Jardiance] 25 mg PO QAM 11/13/19 03/11/21 01/08/20 20:00 gabapentin 800 mg PO QID 11/13/19 03/11/21 01/09/20 03:30 lisinopril 10 mg PO QAM 11/13/19 03/11/21 01/08/20 lorazepam 0.5 mg PO TID PRN 11/13/19 03/11/21 01/09/20 03:30 metformin 1,000 mg PO BID 11/13/19 03/11/21 01/08/20 08:00 oxycodone 30 mg PO QID 11/13/19 03/11/21 01/09/20 03:30 pantoprazole 40 mg PO QAM 11/13/19 03/11/21 01/09/20 03:30 pioglitazone [Actos] 45 mg PO QAM 11/13/19 03/11/21 01/08/20 simvastatin 10 mg PO PM 11/13/19 03/11/21 01/08/20 20:00 tamsulosin 0.4 mg PO HS 11/13/19 03/11/21 01/08/20 20:00 semaglutide [Ozempic] 0.5 mg SUBCUT WK 03/11/21 03/11/21 Unknown Past Medical History Medical History Anemia Anxiety BPH (benign prostatic hyperplasia) Chronic back pain Degenerative disc disease Depression Diabetes mellitus, type 2 NIDDM (oral + injectable) GERD (gastroesophageal reflux disease) Controlled Hyperlipidemia Hypertension Morbid obesity Numbness r/t cervical spine issues (left hand weakness) Osteoarthritis Peripheral neuropathy Sleep apnea S/p UPPP (no retesting after surgery/no current device) Exercise / Class Metabolic Activity II 4-5 Yardwork/Stairs/Walk up hill (one FS (no CP, no SOB)) Past Family History Family History Other Hypertension No family history of adverse response to anesthesia Past Surgical History Surgical History History of back surgery X3 History of cardiac cath Several years ago (no stents) History of carpal tunnel release of both wrists History of knee replacement procedure of left knee X2 History of knee replacement procedure of right knee X2 History of total right hip replacement History of uvulopalatopharyngoplasty Hx of colonoscopy Hx of shoulder surgery Right S/P cervical spinal fusion C4 corpectomy, C5-C6 ACDF (01/09/20): Grade 1 view, glide scope #4, ETT 7.5, atraumatic attempt x1 at [facility] Past Anesthesia History No Hx of Anesthesia Complications and No Family Hx of Anesthesia Complications History of PONV No Hx of PONV and No Hx of Motion Sickness Social History Smoking Status: Current every day smoker tobacco type: cigarettes Smoking cigarettes per day: 10 cigs/day (tobacco use x 30 years) Do You Dip or Chew Tobacco: No Hx Alcohol Use: No Hx Substance Use: No substance use type: does not use Review of Systems Patient reports cough x approximately one week- he states this has been progressively improving and now is only an occasional "tickle" with dry cough. Patient denies chest pain, shortness of breath, dyspnea on exertion, fever, chills, wheezing, palpitations. Physical Exam Vital Signs VITALS BP 116/73 P 69 TEMP SP02 96%RA RESP 18 PHYSICAL Decreased cervical extension range of motion (2/2 cervicalgia). Full TMJ range of motion. TMD 3.5 finger breaths Mallampati Score 3 Dentition: several teeth missing "all over"/~15 remaining teeth per patient Lungs: mild inspiratory wheezes Cardiac: regular rate and rhythm, distant heart sounds Spine: normal Carotid arteries: negative bruit Extremities: no edema Lab Results Anesthesia Preop Results Results Anesthesia Widget: WBC 7.23 K/uL (4.8-10.8) 03/14/21 Hgb 12.9 g/dL (14.0-18.0) L 03/14/21 Hct 39.6 % (42-52) L 03/14/21 Plt 260 K/uL (130-400) 03/14/21 Na 135 mmol/L (136-145) L 03/14/21 K 4.8 mmol/L (3.5-5.1) 03/14/21 Cl 104 mmol/L (98-107) 03/14/21 CO2 28 mmol/L (21-32) 03/14/21 BUN 13 mg/dl (7-18) 03/14/21 Creat 0.84 mg/dl (0.6-1.4) 03/14/21 Glucose Level 93 mg/dl (70-99) 03/14/21 PT 9.8 Seconds (9.0-12.0) 03/14/21 PTT 29.1 Seconds (21.0-31.0) 03/14/21 INR 1.0 (0.9-1.1) 03/14/21 HA1c 6.5 % (4.5-5.6) H 03/14/21 Urine Color Yellow 03/14/21 Urine Appearance Clear (Clear) 03/14/21 Urine pH 5.0 (4.5-7.5) 03/14/21 Urine Specific Fortine 1.029 (1.000-1.030) 03/14/21 Urine Protein Negative (Negative) 03/14/21 Urine Glucose (UA) 3+ (Negative) H 03/14/21 Urine Ketones Negative (Negative) 03/14/21 Urine Blood Negative (Negative) 03/14/21 Urine Nitrite Negative (Negative) 03/14/21 Urine Bilirubin Negative (Negative) 03/14/21 Urine Urobilinogen Negative (Negative) 03/14/21 Urine Leukocyte Esterase Negative (Negative) 03/14/21 Blood Type O Positive 03/14/21 Antibody Screen NEGATIVE 03/14/21 Testing Electrocardiogram Date: 03/07/21 SR at 87bpm. LAD. Septal infarct > echo done 03/11/21 Chest X-Ray Date: 03/14/21 FINDINGS: PA and lateral chest radiographs are compared to study dated 11/21/2019. The heart is top normal for projection. Emphysematous change is suggested. Chronic interstitial thickening is similar to previous. There is bibasilar scarring/atelectasis. No airspace consolidation or pleural effusion is identified. There is no pneumothorax. The skeletal structures are osteopenic. The bony thorax appears intact. Fusion hardware is noted in the lower cervical and upper lumbar spine. IMPRESSION: No active disease in the chest. Suspect emphysema. Echocardiogram Date: 03/11/21 EF 60%. No regional motion abnormality. Mild concentric LVH. Mild biatrial enlargement. Mild RVE. Mild aortic root dilation. Ascending aorta is also dilated measuring 4.4 cm. Trace to mild MR. Trace to mild TR. Grade 1 diastolic dysfunction.
[2021-03-28] MEDS ORDERED: ACETAMINOPHEN 500 MG TAB PO SCH (06:00)
[2021-03-28] MEDS ORDERED: CeleBREX 200 MG CAP PO SCH (06:00)
[2021-03-28] MEDS ORDERED: GABAPENTIN 600 MG DOSE PO SCH (06:00)
[2021-03-28] MEDS ORDERED: LR 15ML/HR IV SCH (06:00)
[2021-03-28] MEDS ORDERED: REMIFENTANIL HCL 1 MG VIAL ONE (07:17)
[2021-03-28] MEDS ORDERED: PROPOFOL IV EMULSION 10 MG/ML 100 ML VIAL IV ONE (07:17)
[2021-03-28] MEDS ORDERED: BUPIVACAINE/EPINEPHRINE 0.5% MPF 1:200,000 30 ML VIAL ONE (07:26)
--- NOTE | 2021-03-28 07:30 | History & Physical Bridge Note ---
Date of Service March 28, 2021 History & Physical Bridge Note I have examined the patient, reviewed the History & Physical and in the interval since the performance of the History & Physical I have noted the following changes of clinical significance: no changes noted
--- NOTE | 2021-03-28 07:31 | History & Physical Report ---
Date of Service March 28, 2021 Assessment & Plan (1) Cervical stenosis of spinal canal: Plan: C7-T1 posterior cervical decompression, C5-T3 fusion History of Present Illness Chief Complaint: Neck and arm pain Primary Care Provider: Hemanth Elizalde This is a 60-year-old male presents with car persistent neck and arm pain after failing course of nonoperative care is here for surgical invention. Allergies Allergy/AdvReac Type Severity Reaction Status Date / Time No Known Allergies Allergy Verified 03/28/21 06:31 Home Medications Medication Instructions Recorded Confirmed Type amitriptyline 50 mg tablet 50 mg PO HS 11/13/19 03/28/21 History bupropion HCl 300 mg 24 hr tablet, 300 mg PO QAM 11/13/19 03/28/21 History extended release buspirone 10 mg tablet 10 mg PO BID 11/13/19 03/28/21 History cholecalciferol (vitamin D3) 25 1,000 unit PO QAM 11/13/19 03/28/21 History mcg (1,000 unit) tablet duloxetine 30 mg capsule,delayed 30 mg PO QID 11/13/19 03/28/21 History release empagliflozin 25 mg tablet 25 mg PO QAM 11/13/19 03/28/21 History (Jardiance) gabapentin 800 mg tablet 800 mg PO QID 11/13/19 03/28/21 History lisinopril 20 mg tablet 10 mg PO QAM 11/13/19 03/28/21 History lorazepam 0.5 mg tablet 0.5 mg PO TID PRN 11/13/19 03/11/21 History metformin 500 mg tablet 1,000 mg PO BID 11/13/19 03/28/21 History oxycodone 30 mg tablet 30 mg PO QID 11/13/19 03/28/21 History pantoprazole 40 mg tablet,delayed 40 mg PO QAM 11/13/19 03/28/21 History release pioglitazone 45 mg tablet (Actos) 45 mg PO QAM 11/13/19 03/28/21 History simvastatin 10 mg tablet 10 mg PO PM 11/13/19 03/28/21 History tamsulosin 0.4 mg capsule 0.4 mg PO HS 11/13/19 03/28/21 History semaglutide (Ozempic) 0.5 mg SUBCUT WK 03/11/21 03/28/21 History acetaminophen 500 mg tablet 1,000 mg PO QID PRN 03/28/21 03/28/21 History (Tylenol Extra Strength) Past Med/Surg History Medical History (Updated 03/28/21 @ 07:30 by Allan Reddy DO) Anemia Anxiety BPH (benign prostatic hyperplasia) Chronic back pain Degenerative disc disease Depression Diabetes mellitus, type 2 NIDDM (oral + injectable) GERD (gastroesophageal reflux disease) Controlled Hyperlipidemia Hypertension Morbid obesity Numbness r/t cervical spine issues (left hand weakness) Osteoarthritis Peripheral neuropathy Sleep apnea S/p UPPP (no retesting after surgery/no current device) Testicle lump Surgical History History of back surgery X3 History of cardiac cath Several years ago (no stents) History of carpal tunnel release of both wrists History of knee replacement procedure of left knee X2 History of knee replacement procedure of right knee X2 History of total right hip replacement History of uvulopalatopharyngoplasty Hx of colonoscopy Hx of shoulder surgery Right S/P cervical spinal fusion C4 corpectomy, C5-C6 ACDF (01/09/20): Grade 1 view, glide scope #4, ETT 7.5, atraumatic attempt x1 at [facility] Family History Other Hypertension No family history of adverse response to anesthesia Social History Smoking Status: Current every day smoker Cigarettes Per Day: 10; Second Hand Exposure: No; Do You Dip or Chew Tobacco: No; Tobacco Cessation Education Requested by Patient: No Hx Alcohol Use: No Hx Substance Use: No Preferred Language: Serbian Communication Ability: Effective House Principal Required: No Beliefs That Will Affect Care: None Current Living Situation: Spouse Other Information That Helps Us Care for You: No Feels Safe at Home: Yes Safety Concerns: Feels Safe At This Time Assistive Devices: None Physical Exam Physical Exam: Patient is alert and oriented Heart regular rhythm Lungs clear to auscultation Results & Data ([facility]) Vital Signs (Past 12 Hours) Vital Signs Temp Pulse Resp BP Pulse Ox 03/28/21 06:47 36.9 C 79 18 120/70 94
[2021-03-28] MEDS ORDERED: ePHEDrine sulfate 50 MG/ML AMP IV PRN (07:46)
[2021-03-28] MEDS ORDERED: ATROPINE SULFATE 0.1 MG/ML 10ML SYR IV PRN (07:46)
[2021-03-28] MEDS ORDERED: PROMETHAZINE HCL 12.5 MG in SODIUM CHLORIDE 0.9% 50 ML IV PRN ×2 (07:46→13:45)
[2021-03-28] MEDS ORDERED: ONDANSETRON INJ 2 MG/ML 2 ML VIAL IV PRN ×2 (07:46→13:45)
[2021-03-28] MEDS ORDERED: HYDROmorphone INJ 2 MG/ML SYR/VIAL ONE (07:49)
[2021-03-28] MEDS ORDERED: fentaNYL citrate 100 MCG/2 ML VIAL ONE (07:53)
[2021-03-28] MEDS ORDERED: KETAMINE 50 MG/5 ML SYRINGE ONE (08:13)
[2021-03-28] MEDS ORDERED: FLOSEAL HEMOSTATIC MATRIX 10ML TOP ONE (09:16)
[2021-03-28] MEDS ORDERED: ALBUMIN HUMAN 5% 12.5 GM/250 ML VIAL IV ONE (09:23)
[2021-03-28] MEDS ORDERED: LIDOCAINE 2% 2 ML VIAL/AMP(20MG/ML) INFIL ONE (10:21)
[2021-03-28] MEDS ORDERED: ePHEDrine sulfate 50 MG/ML SYR ONE (10:21)
[2021-03-28] MEDS ORDERED: PHENYLEPHRINE HCL 10 MG/ML VIAL ONE (10:21)
[2021-03-28] MEDS ORDERED: ROCURONIUM BROMIDE 10 MG/ML 5 ML VIAL IV ONE (10:21)
[2021-03-28] MEDS ORDERED: ONDANSETRON INJ 2 MG/ML 2 ML VIAL ONE (10:21)
[2021-03-28] MEDS ORDERED: DEXAMETHASONE SOD INJ 4 MG/ML VIAL ONE (10:21)
[2021-03-28] MEDS ORDERED: PHENYLEPHRINE 100MCG/ML 5ML SYR ONE (10:21)
[2021-03-28] MEDS ORDERED: PROPOFOL IV EMULSION 10 MG/ML 20 ML VIAL IV ONE (10:21)
--- NOTE | 2021-03-28 11:18 | Operative Report ---
Post Operative Report Pre & Post Diagnosis Operation Date: 03/28/21 07:45 Pre-Op Diagnosis: Spinal Stenosis, Cervical Region Post-Op Diagnosis: Spinal Stenosis, Cervical Region I identified the patient and participated in the time-out.: Yes Procedure Operation Date: 03/28/21 07:45 Actual Procedures #1 Posterior cervical decompression C7-T1. #2 posterior spinal fusion C5-T3. #3 placement posterior segmental instrumentation C5-T3. #4 placement locally harvested morselized autograft in the posterior gutters. #5 placement of his collagen sponge and master graft in the posterior gutters extending from C5-T3. Surgeon Allan Reddy, DO [employer] Handler Molina Eric Estimated Blood Loss 250 Findings See Below The patient is 5 foot 11 weighing over 137 kg with a BMI in excess of 42. The patient's body habitus did contribute to significant technical difficulty with exposure and positioning. This added at least 100% increase to the operative time. Specimens None Indications This is a 60-year-old male who presents above-mentioned diagnosis after failing extensive course of nonoperative care is here for the above-mentioned procedure. Description of Procedure Patient was met with identified informed consent obtained. Patient was then taken to the operative suite underwent ablation and was placed in the 3 prong Chao nailhead setter. He was then placed in a prone position on a Eddie table chest padded hip bolsters. All bony prominences well-padded eyes inspected to ensure no external proximal spine. This point the posterior cervical thoracic spine was prepped draped in a sterile fashion. Sharp dissection with the assistance of Bovie cautery was performed down to and exposing the lateral masses lamina and transverse processes from C5-T3. Then performed a decompression at C7-T1 with foraminotomies on the left removing several bony fragments and material from the fragment. Lateral mass screws were then placed in C3 and C6 bilaterally including pedicle screws placed in T2 and T3 on the right and T1-T2-T3 on the left. Proper size rods were then contoured and locked into position bilaterally. The lamina and transverse processes of C5-C6-C7 T1-T2-T3 were then burred to subcortically bone. Infuse collagen sponge, master graft locally harvested morselized autograft was placed in the posterior gutters. 15 round JOHN drain inserted. The incision was then closed with 1 Vicryl in the fascia 2-0 Vicryl subcutaneously and 4 Monocryl for final skin closure. Steri-Strip sterile dressings placed. Patient will continue PACU stable condition. Please note spinal cord monitoring was utilized at the procedure no changes noted. Lastly Molina Eric was present at the entire procedure and all the patient positioning complex portions of the surgery and final skin closure. I attest to the content of the Intraoperative Record and any orders documented therein. Any exceptions are noted below.
[2021-03-28] MEDS ORDERED: BACITRACIN OINT 15 GM TUBE ONE (11:19)
[2021-03-28] MEDS ORDERED: PHARMACY GLYCEMIC MGMT CONSULT PRN (11:47)
[2021-03-28] MEDS: fentaNYL citrate 100 MCG/2 ML VIAL IV PRN ×2 (12:25→12:30)
[2021-03-28] MEDS ORDERED: GLUCOSE 10 TABS/TUBE PO PRN (12:30)
[2021-03-28] MEDS ORDERED: DEXTROSE 50% 50 ML SYRINGE IV PRN (12:30)
[2021-03-28] MEDS ORDERED: CARBOHYDRATES FOR HYPOGLYCEMIA PO PRN (12:30)
[2021-03-28] MEDS ORDERED: GLUCAGON FOR INJ 1 MG VIAL IM PRN (12:30)
[2021-03-28] MEDS ORDERED: GLUCOSE 40% GEL 15 GM TUBE PO PRN (12:30)
[2021-03-28] MEDS ORDERED: HYDROmorphone INJ 1 MG/ML SYRINGE ONE (12:32)
[2021-03-28] MEDS: HYDROmorphone INJ 2 MG/ML SYR/VIAL IV PRN ×2 (12:40→12:45)
--- NOTE | 2021-03-28 13:13 | Anesthesiology Progress Note ---
Date of Service March 28, 2021 Anesthesia Post Procedure Vital Signs Vital Signs: Temp Pulse Pulse Resp BP BP Pulse Ox 03/28/21 13:05 79 16 145/79 H 96 03/28/21 12:55 36.5 C 80 16 136/86 97 03/28/21 12:45 81 16 132/78 95 03/28/21 12:35 81 16 138/82 97 03/28/21 12:25 95 H 16 168/80 H 97 03/28/21 12:15 87 16 161/82 H 99 03/28/21 12:08 36.1 C L 86 16 159/78 H 100 03/28/21 06:47 36.9 C 79 18 120/70 94 Pain Intensity Bilateral Back: Pain Intensity: 8 Right Testicles: Pain Intensity: 10 Posterior Neck: Pain Intensity: 5 Transfer of Care Handoff Completed per policy Notes Mental Status: alert / awake / arousable and participated in evaluation Patient Amnestic to Procedure: Yes Nausea / Vomiting: adequately controlled Pain: adequately controlled Airway Patency, RR, SpO2: stable & adequate BP & HR: stable & adequate Hydration State: stable & adequate Anesthetic Complications: no major complications apparent and Pt Satisfied with anesthetic care
--- NOTE | 2021-03-28 13:20 | Fluoroscopy Report ---
INTRAOPERATIVE RADIOGRAPHS CLINICAL HISTORY: C5-T3 spinal fusion. Fluoroscopy time: 58 seconds. FINDINGS: 3 spot fluoroscopic views of the cervicothoracic spine are presented. There is evidence of multilevel laminectomy and spinal fusion. Anterior fusion hardware is seen throughout the cervical sp ine, with posterior fusion seen at the cervicothoracic junction. This is reportedly at the C5-T3 leve ls. This is difficult to localize on these fluoroscopic views. Posterior spinal rods are in place. Th e orthopedic hardware appears intact. IMPRESSION: Intraoperative images from cervicothoracic spinal fusion as above. Electronically signed by: Yobany Ramirez M.D. 03/28/2021 1:19 PM
[2021-03-28] MEDS ORDERED: ePHEDrine sulfate 50 MG/ML AMP ONE (13:43)
[2021-03-28] MEDS ORDERED: DO NOT ADMINISTER FLU VACCINE PRN (13:45)
[2021-03-28] MEDS ORDERED: oxyCODONE HCL IR 5 MG TAB (IMMEDIATE RELEASE) PO PRN (13:45)
[2021-03-28] MEDS ORDERED: ONDANSETRON 4 MG OD TAB PO PRN (13:45)
[2021-03-28] MEDS ORDERED: FAMOTIDINE 20 MG TAB PO PRN (13:45)
[2021-03-28] MEDS ORDERED: LORazepam 0.5 MG TAB PO PRN ×2 (13:45)
[2021-03-28] MEDS ORDERED: hydrOXYzine HCl 25 MG TAB PO PRN (13:45)
[2021-03-28] MEDS ORDERED: RACEPINEPHRINE 2.25% NEBU SOLN 0.5 ML VIAL INH PRN (13:45)
[2021-03-28] MEDS ORDERED: SOD PHOSPHATE/SOD BIPHOSPHATE ENEMA 132 ML BTL PR PRN (13:45)
[2021-03-28] MEDS ORDERED: ACETAMINOPHEN 1,000 MG/100 ML VIAL IV PRN (13:45)
[2021-03-28] MEDS ORDERED: NALOXONE HCL 0.4 MG/1 ML VIAL/CARP IV PRN (13:45)
[2021-03-28] MEDS ORDERED: LORazepam 0.5 MG/1 ML VIAL IV PRN (13:45)
[2021-03-28] MEDS ORDERED: diphenhydrAMINE Capsule 25 MG CAP PO PRN (13:45)
[2021-03-28] MEDS ORDERED: MAGNESIUM HYDROXIDE SUSP 30 ML UDC PO PRN (13:45)
[2021-03-28] MEDS ORDERED: DO NOT ADMINISTER PNEUMOCOCCAL VACCINE PRN (13:45)
[2021-03-28] MEDS ORDERED: ACETAMINOPHEN 500 MG TAB PO PRN (13:45)
[2021-03-28] MEDS ORDERED: HYDROmorphone INJ 0.5 MG/0.5 ML SYR IV PRN (13:45)
[2021-03-28] MEDS ORDERED: ALUMINUM/MAGNESIUM SUSP 30 ML UDC PO PRN (13:45)
[2021-03-28] MEDS ORDERED: dexAMETHasone 8 MG in SYRINGE 0 ML IV PRN (13:45)
[2021-03-28] MEDS ORDERED: METOCLOPRAMIDE HCL INJ 5 MG/ML 2 ML VIAL IV PRN (13:45)
[2021-03-28] MEDS ORDERED: NovoLIN-N (NPH) PER UNIT CHARGE SQ ONE (14:30)
[2021-03-28] MEDS: SODIUM CHLORIDE 0.9% 1000ML 1,000 ML IV SCH ×2 (14:38→21:59)
--- NOTE | 2021-03-28 14:41 | Pharmacy Report ---
Pharmacy Glycemic Short Note 2 - Date of Service March 28, 2021 - Glycemic Short BSG Results (Last 24 hours): 03/28/21 03/28/21 06:22 12:18 POC Glucose 134 H 171 H OUTPATIENT ANTIDIABETIC REGIMEN: * Jardiance, metformin, ozempic * A1c 6.5% ASSESSMENT: * 60 year old now s/p spinal surgery, POD 0. Type 2 diabetic, pharmacy consulted for glycemic management * Received steroids intraop therefore anticipate steroid induced hyperglycemia * Postop BSG 171 mg/dL - will give 35 units of NPH x 1 now to help with steroids coverage (0.3 units/kg adj bw) * Plan for novolog stress of 3 dosing with overnight checks PLAN FOR INPATIENT GLYCEMIC CONTROL: * Hold outpatient oral diabetes medications * Basal insulin * NPH 35 units x 1 * Bolus insulin * NovoLog per scale ACHS or Q6hrs while NPO * Goal Range: Low 110 mg/dL - High 140 mg/dL * Correction Factor: 15 mg/dL/unit * Nutritional / Prandial insulin per carb ratio of 1 unit per 5 grams CHO consumed PLAN FOR DISCHARGE: * A1c 6.5% - goal <7% * Reasonable to continue home diabetic medications on discharge as long as no contraindications exist
--- NOTE | 2021-03-28 14:43 | Consultation ---
Date of Consultation March 28, 2021 Assessment & Plan (1) S/P spinal surgery: (2) Cervical stenosis of spinal canal: Post op day# 0 S/P decompression C7 and fusion C5-T3 by Dr Maureen RICCI#[id number] -pain management per ortho -wound management per ortho -PT/OT as appropriate -DVT prophylaxis per ortho -incentive spirometry -monitor H&H for acute blood loss anemia; pre-op Hgb: 12.9 (3) Diabetes mellitus, type 2: A1c: 6.5 on 03/14/21 -Hold home glycemic agents -Basal Bolus insulin per protocol. Glycemic pharmacist on board, appreciate glycemic management (4) Hypertension: -Hold lisinopril and reassess tomorrow (5) Hyperlipidemia: -Continue simvastatin (6) Anxiety: -Continue bupropion, duloxetine, buspirone, amitriptyline (7) GERD (gastroesophageal reflux disease): -Continue PPI (8) BPH (benign prostatic hyperplasia): -Continue tamsulosin DVT Prophylaxis -SCDs per ortho Disposition per primary service Follows with Dr Elizalde in [place] for routine care Pt was seen and care coordinated with Dr Jonas. See addendum Thank you for this consultation. We will follow the patient with you during their hospital stay. You can reach a member of the [facility] 29/03 via [facility] Supervising Physician Co-Signing Physician Notes Attending addendum The patient was seen and examined in medical floor He is a status post posterior cervical decompression and fusion He has been having a lot of pain in the cervical area and also pain in the testicles On examination He is in pain Hemodynamically stable with blood pressure high at 162/93 Chest-clear to auscultate bilaterally with decreased breath sound Heart-S1-S2, regular Abdomen-benign Extremities-trace edema bilaterally Examination of the testicles-not showing any swelling of the testes for any erythema but was painful on local palpation His labs and imaging studies and echocardiogram reviewed prior to surgery Has significant neck pain and also pain in the testicles following surgery Urinary catheter may be complicating the pain She has been getting adequate pain medications as advised by Ortho His other medical conditions remain stable Agree with assessment and plan as outlined above by JULIUS Saavedra Dr History of Present Illness Requesting Physician: Dr Reddy Reason for Consultation: Post op medical management Attending Physician: Allan Reddy, DO History of Present Illness Pt is 60 y/o M with PMH DM II, HTN, HLD, anxiety, GERD, BPH seen in medical consultation s/p decompression C7 and fusion C5-T3 today by Dr. Reddy. Postop patient reports still feeling drowsy. Reports some mild neck pain currently. Denies any upper or lower extremity pain or paresthesias. Denies nausea, vomiting, chest pain, shortness of breath. Has not attempted drinking fluids yet. Denies ANDERSON, dizziness, cough, abdominal pain, extremity edema, rashes, urinary symptoms. Allergies Allergy/AdvReac Type Severity Reaction Status Date / Time No Known Allergies Allergy Verified 03/28/21 06:31 Home Medications Medication Instructions Recorded Confirmed Type amitriptyline 50 mg tablet 50 mg PO HS 11/13/19 03/28/21 History bupropion HCl 300 mg 24 hr tablet, 300 mg PO QAM 11/13/19 03/28/21 History extended release buspirone 10 mg tablet 10 mg PO BID 11/13/19 03/28/21 History cholecalciferol (vitamin D3) 25 1,000 unit PO QAM 11/13/19 03/28/21 History mcg (1,000 unit) tablet duloxetine 30 mg capsule,delayed 30 mg PO QID 11/13/19 03/28/21 History release empagliflozin 25 mg tablet 25 mg PO QAM 11/13/19 03/28/21 History (Jardiance) gabapentin 800 mg tablet 800 mg PO QID 11/13/19 03/28/21 History lisinopril 20 mg tablet 10 mg PO QAM 11/13/19 03/28/21 History lorazepam 0.5 mg tablet 0.5 mg PO TID PRN 11/13/19 03/11/21 History metformin 500 mg tablet 1,000 mg PO BID 11/13/19 03/28/21 History oxycodone 30 mg tablet 30 mg PO QID 11/13/19 03/28/21 History pantoprazole 40 mg tablet,delayed 40 mg PO QAM 11/13/19 03/28/21 History release pioglitazone 45 mg tablet (Actos) 45 mg PO QAM 11/13/19 03/28/21 History simvastatin 10 mg tablet 10 mg PO PM 11/13/19 03/28/21 History tamsulosin 0.4 mg capsule 0.4 mg PO HS 11/13/19 03/28/21 History semaglutide (Ozempic) 0.5 mg SUBCUT WK 03/11/21 03/28/21 History acetaminophen 500 mg tablet 1,000 mg PO QID PRN 03/28/21 03/28/21 History (Tylenol Extra Strength) Patient History Medical History Anemia Anxiety BPH (benign prostatic hyperplasia) Chronic back pain Degenerative disc disease Depression Diabetes mellitus, type 2 NIDDM (oral + injectable) GERD (gastroesophageal reflux disease) Controlled Hyperlipidemia Hypertension Morbid obesity Numbness r/t cervical spine issues (left hand weakness) Osteoarthritis Peripheral neuropathy Sleep apnea S/p UPPP (no retesting after surgery/no current device) Testicle lump Surgical History History of back surgery X3 History of cardiac cath Several years ago (no stents) History of carpal tunnel release of both wrists History of knee replacement procedure of left knee X2 History of knee replacement procedure of right knee X2 History of total right hip replacement History of uvulopalatopharyngoplasty Hx of colonoscopy Hx of shoulder surgery Right S/P cervical spinal fusion C4 corpectomy, C5-C6 ACDF (01/09/20): Grade 1 view, glide scope #4, ETT 7.5, atraumatic attempt x1 at [facility] Family History Other Hypertension No family history of adverse response to anesthesia Social History Smoking Status: Current every day smoker Cigarettes Per Day: 10; Second Hand Exposure: No; Do You Dip or Chew Tobacco: No; Tobacco Cessation Education Requested by Patient: No Hx Alcohol Use: No Hx Substance Use: No Preferred Language: Amharic Communication Ability: Effective 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 Beliefs That Will Affect Care: None marital status: Current Living Situation: Spouse Other Information That Helps Us Care for You: No Feels Safe at Home: Yes Safety Concerns: Feels Safe At This Time Assistive Devices: None Review of Systems Review of Systems: All systems reviewed & are unremarkable except as noted in HPI & below Physical Exam Physical Exam: General: no acute distress, obese Head: normocephalic, atraumatic Eyes: conjunctiva non-injected, anicteric ENT: normal inspection external ears, nose, mucous membranes mildly dry Neck: supple, trachea midline, posterior neck with surgical dressing in place and is dry. +JOHN drain with serosanguineous drainage Lungs: clear, no respiratory distress, no wheezing/rhonchi/rales CV: RRR, no murmur, no pretibial edema Abd: normal BS, soft, non-tender Ext: no cyanosis, no calf tenderness, financial aid manager strength intact bilaterally, pedal pushes and pulls intact bilaterally Neuro: Drowsy, but awakens to voice, oriented x 3, no focal deficits noted, normal affect Skin: warm, dry Results & Data ([facility]) Vital Signs (Past 12 Hours) Vital Signs Temp Pulse Pulse Resp BP BP Pulse Ox 03/28/21 14:10 36.4 C L 72 18 130/80 100 03/28/21 13:40 36.5 C 80 14 152/78 H 95 03/28/21 13:30 79 16 135/85 96 03/28/21 13:15 78 16 149/80 H 96 03/28/21 13:05 79 16 145/79 H 96 03/28/21 12:55 36.5 C 80 16 136/86 97 03/28/21 12:45 81 16 132/78 95 03/28/21 12:35 81 16 138/82 97 03/28/21 12:25 95 H 16 168/80 H 97 03/28/21 12:15 87 16 161/82 H 99 03/28/21 12:08 36.1 C L 86 16 159/78 H 100 03/28/21 06:47 36.9 C 79 18 120/70 94
[2021-03-28] MEDS: INSULIN ASPART 100 UNITS/ML 3 ML PEN SC SCH ×4 (15:38→23:48)
[2021-03-28] MEDS: GABAPENTIN 800 MG TAB PO SCH ×3 (15:39→20:20)
[2021-03-28] MEDS: DULoxetine HCL 30 MG CAP PO SCH ×3 (15:39→20:20)
[2021-03-28] MEDS: oxyCODONE HCL IR 30 MG TAB (IMMEDIATE RELEASE) PO SCH ×3 (15:40→20:20)
[2021-03-28] MEDS ORDERED: NEOSTIGMINE METHYLSULFATE 1 MG/ML 10ML VIAL ONE (16:06)
[2021-03-28] MEDS ORDERED: GLYCOPYRROLATE 0.2 MG/ML VIAL ONE (16:06)
[2021-03-28] MEDS: HYDROmorphone INJ 1 MG/ML SYRINGE IV PRN ×3 (16:12→22:33)
[2021-03-28] MEDS: KETOROLAC 30 MG/ML VIAL IV SCH ×2 (17:58→23:47)
[2021-03-28] MEDS: ceFAZolin 2000MG 2,000 MG/15 ML SYR IV SCH ×2 (18:03→23:46)
[2021-03-28] MEDS ORDERED: LIDOCAINE 2% JELLY 5 ML TUBE EXT ONE (18:32)
[2021-03-28] MEDS: DOCUSATE SODIUM/SENNA 50/8.6MG TAB PO SCH (20:20)
[2021-03-28] MEDS: SIMVASTATIN 10 MG TAB PO SCH (20:20)
[2021-03-28] MEDS: TAMSULOSIN HCL 0.4 MG CAP PO SCH (20:20)
[2021-03-28] MEDS: busPIRone 5 MG TAB PO SCH (20:20)
[2021-03-28] MEDS: AMITRIPTYLINE HCL 50 MG TAB PO SCH (20:20)
[2021-03-29] MEDS: HYDROmorphone INJ 1 MG/ML SYRINGE IV PRN (03:21)
[2021-03-29] MEDS: INSULIN ASPART 100 UNITS/ML 3 ML PEN SC SCH ×5 (03:25→20:31)
[2021-03-29] MEDS ORDERED: Nursing to Pharmacy Communication SCH (03:30)
[2021-03-29] MEDS: KETOROLAC 30 MG/ML VIAL IV SCH ×2 (05:12→12:57)
[2021-03-29] MEDS: POLYETHYLENE (MIRALAX) 17 GM PACK PO SCH ×4 (05:12→22:03)
[2021-03-29 07:08] LABS: Basophils # (auto) 0.01 K/uL (0-0.2); Basophils % (auto) 0.1 %; Eosinophils # (auto) 0.04 K/uL (0-0.5); Eosinophils % (auto) 0.4 %; Hematocrit (blood only) 29.7 % (42-52); Hemoglobin 9.6 g/dL (14.0-18.0); Immature Granulocytes # (auto) 0.02 K/uL (0.00-0.02); Immature Granulocytes % (auto) 0.2 %; Lymphocytes # (auto) 2.03 K/uL (1.2-3.4); Lymphocytes % (auto) 18.8 %; Mean Corpuscular Hemoglobin 29.1 pg (25-34); Mean Corpuscular Hgb Conc 32.3 g/dL (32-36); Mean Platelet Volume 9.6 fL (7.4-10.4); Monocytes # (auto) 0.66 K/uL (0.11-0.59); Monocytes % (auto) 6.1 %; Neutrophils # (auto) 8.03 K/uL (1.4-6.5); Neutrophils % (auto) 74.4 %; Platelet Count 183 K/uL (130-400); RDW Standard Deviation 49.1 fL (36.4-46.3); White Blood Count 10.79 K/uL (4.8-10.8)
[2021-03-29 07:27] LABS: BUN Creatinine Ratio 18.8 (10-20); Calcium 8.3 mg/dl (8.5-10.1); Creatinine Clr Calc Pharmacy 130.6 ml/min; Est GFR (African American) 109.5 ml/min; Est GFR (Non-African American) 94.5 ml/min; Magnesium 2.2 mg/dl (1.8-2.4); Potassium 4.6 mmol/L (3.5-5.1)
[2021-03-29] MEDS: oxyCODONE HCL IR 30 MG TAB (IMMEDIATE RELEASE) PO SCH ×4 (08:37→20:31)
[2021-03-29] MEDS: busPIRone 5 MG TAB PO SCH ×2 (08:37→20:31)
[2021-03-29] MEDS: GABAPENTIN 800 MG TAB PO SCH ×4 (08:37→20:31)
[2021-03-29] MEDS: buPROPion XL 300 MG TABCR PO SCH (08:37)
[2021-03-29] MEDS: DULoxetine HCL 30 MG CAP PO SCH ×4 (08:37→20:31)
[2021-03-29] MEDS: PANTOprazole 40 MG TAB PO SCH (08:38)
[2021-03-29] MEDS ORDERED: lisinopril 10 MG TAB PO SCH (09:00)
[2021-03-29] MEDS ORDERED: NON-FORMULARY MEDICATION (Pioglitazone [Actos] 45 mg Tablet) PO SCH (09:00)
--- NOTE | 2021-03-29 10:28 | Orthopedic Progress Note ---
Date of Service March 29, 2021 Assessment & Plan (1) Cervical stenosis of spinal canal: Plan: At this time we will maintain the JOHN drain another 24 hours. I will assess him in the morning and possibly discharge home tomorrow. Admission and Anticipated Discharge Date Admission Date: March 28, 2021 Subjective Neck pain controlled arm symptoms markedly improved Physical Exam Physical Exam: Patient is sitting up in bed. Is comfortable. Excellent str ength to testing to the upper extremities. Results & Data ([facility]) Vital Signs (Past 12 Hours) Vital Signs Temp Pulse Resp BP Pulse Ox 03/29/21 07:28 36.7 C 60 16 110/63 98 03/29/21 03:29 36.3 C L 68 16 118/68 96
[2021-03-29] MEDS: metFORMIN HCL 500 MG TAB PO SCH ×2 (10:29→17:58)
--- NOTE | 2021-03-29 15:14 | Hospitalist Progress Note ---
Date of Service March 29, 2021 Assessment & Plan (1) S/P spinal surgery: Plan: As below (2) Cervical stenosis of spinal canal: Plan: Post op day# 1 S/P decompression C7 and fusion C5-T3 by Dr Maureen RICCI#250ml -pain management per ortho -wound management per ortho -PT/OT as appropriate -DVT prophylaxis per ortho -incentive spirometry -monitor H&H for acute blood loss anemia; pre-op Hgb: 12.9 -Hemoglobin is dropped to 9.6-we will monitor (3) Diabetes mellitus, type 2: Plan: A1c: 6.5 on 03/14/21 -Hold home glycemic agents -Basal Bolus insulin per protocol. Glycemic pharmacist on board, appreciate glycemic management (4) Hypertension: Plan: -Hold lisinopril and reassess tomorrow -We will restart his usual blood pressure medications (5) Hyperlipidemia: Plan: -Continue simvastatin (6) Anxiety: Plan: -Continue bupropion, duloxetine, buspirone, amitriptyline -No acute anxiety (7) GERD (gastroesophageal reflux disease): Plan: -Continue PPI (8) BPH (benign prostatic hyperplasia): Plan: -Continue tamsulosin DVT Prophylaxis -SCDs per ortho Disposition per primary service Follows with Dr Elizalde in [place], [place] for routine care Admission and Anticipated Discharge Date Admission Date: March 28, 2021 Subjective 03/29/2021 The patient was seen and examined in medical floor He is a status post cervical spinal surgery on of this month Has had severe pain yesterday but this morning he feels lot better His pain in the testicular area has improved too Review of Systems Review of Systems: All systems reviewed and are unremarkable except as noted below Musculoskeletal: Cervical pain and some pain in left testicle Physical Exam Physical Exam: Sitting on a chair without any acute distress Constitutional: well developed, well nourished, + ill appearing and + obese Eyes: PERRL, conjunctivae normal, anicteric sclerae ENMT: external ear and nose normal, oropharynx normal Neck: trachea midline, no thyromegaly Respiratory: no respiratory distress Auscultation: lungs clear to auscultation bilaterally Cardiovascular: Rate/Rhythm: regular rate and regular rhythm Heart Sounds: normal S1 and normal S2; no murmur Gastrointestinal (Abdomen): normal bowel sounds, soft, nontender, no hepatosplenomegaly Musculoskeletal: Cervical collar on with minimal pain at rest Neurologic: Alert, awake and oriented x3. Focal sensory and motor deficit appreciated Results & Data Results & Data ([facility]) Vital Signs (Past 12 Hours) Vital Signs Temp Pulse Pulse Resp BP BP Pulse Ox 03/29/21 12:15 36.6 C 77 20 113/65 99 03/29/21 07:28 36.7 C 60 16 110/63 98 03/29/21 03:29 36.3 C L 68 16 118/68 96 Laboratory Results Short CBC 03/29/21 Range/Units 06:50 WBC 10.79 (4.8-10.8) K/uL Hgb 9.6 L (14.0-18.0) g/dL Hct 29.7 L (42-52) % Plt Count 183 (130-400) K/uL BMP 03/29/21 06:50 Sodium 132 L Potassium 4.6 Chloride 101 Carbon Dioxide 30 BUN 16 Creatinine 0.84 Glucose 139 H Calcium 8.3 L Medications Administered Current Inpatient Medications Acetaminophen (Acetaminophen 500 Mg Tab) 1,000 mg PO Q8H PRN PRN Reason: MILD Pain Scale 1,2,3 & Pre PT Stop: 04/27/21 13:44 Al Hydrox/Mg Hydrox/Simethicone (Aluminum/Magnesium Susp 30 Ml Udc) 30 ml PO Q6H PRN PRN Reason: Dyspepsia Stop: 04/27/21 13:44 Amitriptyline HCl (Amitriptyline Hcl 50 Mg Tab) 50 mg PO HS KEYSHA Stop: 04/27/21 20:59 Last Admin: 03/28/21 20:20 Dose: 50 mg Documented by: Bisacodyl (Bisacodyl 10 Mg Supp) 10 mg NM DAILY PRN PRN Reason: Constipation Stop: 04/29/21 07:59 Bupropion HCl (Bupropion Xl 300 Mg Tabcr) 300 mg PO QAM KEYSHA Stop: 04/28/21 08:59 Last Admin: 03/29/21 08:37 Dose: 300 mg Documented by: Buspirone HCl (Buspirone 5 Mg Tab) 10 mg PO BID KEYSHA Stop: 04/27/21 20:59 Last Admin: 03/29/21 08:37 Dose: 10 mg Documented by: Dextrose (Dextrose 50% 50 Ml Syringe) 25 - 50 ml IV UD PRN; Protocol PRN Reason: Hypoglycemia Protocol Stop: 04/27/21 12:29 Diphenhydramine HCl (Diphenhydramine Capsule 25 Mg Cap) 25 mg PO Q6H PRN PRN Reason: Allergic Rhinitis/Insomnia Stop: 04/27/21 13:44 Duloxetine HCl (Duloxetine Hcl 30 Mg Cap) 30 mg PO QID KEYSHA Stop: 04/27/21 13:44 Last Admin: 03/29/21 12:58 Dose: 30 mg Documented by: Epinephrine (Racepinephrine 2.25% Nebu Soln 0.5 Ml Vial) 0.5 ml INH NOW PRN PRN Reason: if stridor present Famotidine (Famotidine 20 Mg Tab) 20 mg PO Q12H PRN PRN Reason: Dyspepsia Stop: 04/27/21 13:44 Gabapentin (Gabapentin 800 Mg Tab) 800 mg PO QID KEYSHA Stop: 04/27/21 13:44 Last Admin: 03/29/21 12:58 Dose: 800 mg Documented by: Glucagon (Glucagon For Inj 1 Mg Vial) 1 mg IM UD PRN; Protocol PRN Reason: Hypoglycemia Protocol Stop: 04/27/21 12:29 Glucose (Glucose 40% Gel 15 Gm Tube) 15 - 30 gm PO UD PRN; Protocol PRN Reason: Hypoglycemia Protocol Stop: 04/27/21 12:29 Glucose (Glucose 10 Tabs/Tube) 4 - 8 tabs PO UD PRN; Protocol PRN Reason: Hypoglycemia Protocol Stop: 04/27/21 12:29 Hydromorphone HCl (Hydromorphone Inj 0.5 Mg/0.5 Ml Syr) 0.5 mg IV Q3H PRN PRN Reason: MOD pain (scale 4-6) & Pre PT Stop: 04/11/21 13:44 Hydromorphone HCl (Hydromorphone Inj 1 Mg/Ml Syringe) 1 mg IV Q3H PRN PRN Reason: severe pain (scale 7-10) Stop: 04/11/21 13:44 Last Admin: 03/29/21 03:21 Dose: 1 mg Documented by: Hydroxyzine HCl (Hydroxyzine Hcl 25 Mg Tab) 25 mg PO Q8H PRN PRN Reason: Anxiety Stop: 04/27/21 13:44 Dexamethasone 8 mg/ Syringe 2 mls @ 1 mls/min IV NOW PRN PRN Reason: stridor Promethazine HCl 12.5 mg/ (Sodium Chloride) 50.5 mls @ 202 mls/hr IV Q6H PRN PRN Reason: Nausea &/or Vomiting Stop: 04/27/21 13:44 Acetaminophen (Ofirmev) 1,000 mg in 100 mls @ 400 mls/hr IV Q8H PRN PRN Reason: Pain Rating 1-3 & Pre PT Stop: 03/31/21 13:44 Lorazepam (Ativan) 0.5 mg in 1 mls @ 1 mls/min IV Q8H PRN PRN Reason: Sedation/Anxiety Stop: 04/27/21 13:44 Dexamethasone 8 mg/ Syringe 2 mls @ 1 mls/min IV DAILY [facility] Stop: 04/29/21 08:59 Influenza Virus Vaccine Quadrival (Do Not Administer Flu Vaccine) 1 ea N/A PRN PRN PRN Reason: Notification Stop: 04/27/21 13:44 Insulin Aspart (Insulin Aspart 100 Units/Ml 3 Ml Pen) 0 units SC [facility] Stop: 03/29/21 23:00 Last Admin: 03/29/21 13:05 Dose: 19 units Documented by: Insulin Aspart (Insulin Aspart 100 Units/Ml 3 Ml Pen) 0 units SC ACHS [facility] Stop: 04/29/21 07:29 Insulin Human NPH (Novolin-N (Nph) Per Unit Charge) 35 units SQ 0900 ONE Stop: 03/30/21 09:01 Lisinopril (Lisinopril 10 Mg Tab) 10 mg PO QAM [facility] Stop: 04/28/21 08:59 Lorazepam (Lorazepam 0.5 Mg Tab) 0.5 mg PO Q8H PRN PRN Reason: sedation/anxiety Stop: 04/27/21 13:44 Last Admin: 03/28/21 17:56 Dose: 0.5 mg Documented by: Magnesium Hydroxide (Magnesium Hydroxide Susp 30 Ml Udc) 30 ml PO Q24H PRN PRN Reason: Constipation Stop: 04/27/21 13:44 Metformin HCl (Metformin Hcl 500 Mg Tab) 1,000 mg PO BIDM [facility] Stop: 04/28/21 09:59 Last Admin: 03/29/21 10:29 Dose: 1,000 mg Documented by: Metoclopramide HCl (Metoclopramide Hcl Inj 5 Mg/Ml 2 Ml Vial) 10 mg IV Q6H PRN PRN Reason: Nausea &/or Vomiting Stop: 04/27/21 13:44 Miscellaneous (Carbohydrates For Hypoglycemia ) 15 - 30 gm PO UD PRN PRN Reason: Hypoglycemia Treatment Stop: 04/27/21 12:29 Miscellaneous Information (Pharmacy Glycemic Mgmt Consult) 1 ea N/A UD PRN PRN Reason: Consult Stop: 04/27/21 11:46 Naloxone HCl (Naloxone Hcl 0.4 Mg/1 Ml Vial/Carp) 0.1 mg IV Q5M PRN PRN Reason: Oversedation/respiratory dep Stop: 04/27/21 13:44 Ondansetron HCl (Ondansetron Inj 2 Mg/Ml 2 Ml Vial) 4 mg IV Q6H PRN PRN Reason: Nausea &/or Vomiting Stop: 04/27/21 13:44 Ondansetron HCl (Ondansetron 4 Mg Od Tab) 4 mg PO Q6H PRN PRN Reason: Nausea Stop: 04/27/21 13:44 Oxycodone HCl (Oxycodone Hcl Ir 30 Mg Tab (Immediate Release)) 30 mg PO QID KEYSHA Stop: 04/11/21 13:44 Last Admin: 03/29/21 13:03 Dose: 30 mg Documented by: Pantoprazole Sodium (Pantoprazole 40 Mg Tab) 40 mg PO QAM KEYSHA Stop: 04/28/21 08:59 Last Admin: 03/29/21 08:38 Dose: 40 mg Documented by: Pneumococcal Polyvalent Vaccine (Do Not Administer Pneumococcal Vaccine) 1 ea N/A PRN PRN PRN Reason: Notification Stop: 04/27/21 13:44 Polyethylene Glycol (Polyethylene (Miralax) 17 Gm Pack) 17 gm PO Q6 KEYSHA Stop: 04/28/21 05:59 Last Admin: 03/29/21 12:57 Dose: 17 gm Documented by: Senna/Docusate Sodium (Docusate Sodium/Senna 50/8.6mg Tab) 2 tab PO HS KEYSHA Stop: 04/27/21 20:59 Last Admin: 03/28/21 20:20 Dose: 2 tab Documented by: Simvastatin (Simvastatin 10 Mg Tab) 10 mg PO PM KEYSHA Stop: 04/27/21 20:59 Last Admin: 03/28/21 20:20 Dose: 10 mg Documented by: Sodium Biphosphate/Sodium Phosphate (Sod Phosphate/Sod Biphosphate Enema 132 Ml Btl) 132 ml NM ONE PRN PRN Reason: Constipation Stop: 04/27/21 13:44 Tamsulosin HCl (Tamsulosin Hcl 0.4 Mg Cap) 0.4 mg PO HS KEYSHA Stop: 04/27/21 20:59 Last Admin: 03/28/21 20:20 Dose: 0.4 mg Documented by:
[2021-03-29] MEDS: DOCUSATE SODIUM/SENNA 50/8.6MG TAB PO SCH (20:30)
[2021-03-29] MEDS: SIMVASTATIN 10 MG TAB PO SCH (20:31)
[2021-03-29] MEDS: TAMSULOSIN HCL 0.4 MG CAP PO SCH (20:31)
[2021-03-29] MEDS: AMITRIPTYLINE HCL 50 MG TAB PO SCH (20:31)
[2021-03-30] MEDS: POLYETHYLENE (MIRALAX) 17 GM PACK PO SCH (05:36)
[2021-03-30] MEDS ORDERED: Nursing to Pharmacy Communication SCH (05:45)
[2021-03-30 05:49] LABS: Basophils # (auto) 0.02 K/uL (0-0.2); Basophils % (auto) 0.3 %; Eosinophils % (auto) 1.6 %; Hematocrit (blood only) 29.4 % (42-52); Hemoglobin 9.3 g/dL (14.0-18.0); Immature Granulocytes # (auto) 0.01 K/uL (0.00-0.02); Immature Granulocytes % (auto) 0.2 %; Lymphocytes # (auto) 1.69 K/uL (1.2-3.4); Lymphocytes % (auto) 27.1 %; Mean Corpuscular Hemoglobin 29.2 pg (25-34); Mean Corpuscular Hgb Conc 31.6 g/dL (32-36); Mean Corpuscular Volume 92.2 fL (80-100); Mean Platelet Volume 9.7 fL (7.4-10.4); Monocytes # (auto) 0.46 K/uL (0.11-0.59); Monocytes % (auto) 7.4 %; Neutrophils # (auto) 3.96 K/uL (1.4-6.5); Neutrophils % (auto) 63.4 %; Platelet Count 181 K/uL (130-400); RDW Coefficient of Variation 15.1 % (11.5-14.5); RDW Standard Deviation 51.7 fL (36.4-46.3); Red Blood Count 3.19 M/uL (4.7-6.1); White Blood Count 6.24 K/uL (4.8-10.8)
[2021-03-30 06:30] LABS: BUN Creatinine Ratio 17.2 (10-20); Calcium 8.6 mg/dl (8.5-10.1); Creatinine Clr Calc Pharmacy 171.5 ml/min; Est GFR (African American) 122.5 ml/min; Est GFR (Non-African American) 105.7 ml/min; Potassium 4.3 mmol/L (3.5-5.1)
[2021-03-30] MEDS ORDERED: bisacodyL 10 MG SUPP PR PRN (08:00)
[2021-03-30] MEDS: HYDROmorphone INJ 1 MG/ML SYRINGE IV PRN ×2 (08:00→21:54)
[2021-03-30] MEDS: oxyCODONE HCL IR 30 MG TAB (IMMEDIATE RELEASE) PO SCH ×4 (08:47→20:44)
[2021-03-30] MEDS: buPROPion XL 300 MG TABCR PO SCH (08:49)
[2021-03-30] MEDS: metFORMIN HCL 500 MG TAB PO SCH ×2 (08:49→17:47)
[2021-03-30] MEDS: GABAPENTIN 800 MG TAB PO SCH ×4 (08:49→20:45)
[2021-03-30] MEDS: DULoxetine HCL 30 MG CAP PO SCH ×4 (08:49→20:45)
[2021-03-30] MEDS: busPIRone 5 MG TAB PO SCH ×2 (08:49→20:44)
[2021-03-30] MEDS: dexAMETHasone 8 MG in SYRINGE 0 ML IV SCH (08:49)
[2021-03-30] MEDS: PANTOprazole 40 MG TAB PO SCH (08:50)
[2021-03-30] MEDS: INSULIN ASPART 100 UNITS/ML 3 ML PEN SC SCH ×4 (08:51→20:47)
[2021-03-30] MEDS ORDERED: NovoLIN-N (NPH) PER UNIT CHARGE SQ ONE (09:00)
--- NOTE | 2021-03-30 10:13 | Orthopedic Progress Note ---
Date of Service March 30, 2021 Assessment & Plan (1) Cervical stenosis of spinal canal: Plan: At this time we will continue with pain management at today. I will maintain the JOHN drain. We will change his dressing today. Hopefully he will begin to improve and be discharged home tomorrow. Admission and Anticipated Discharge Date Admission Date: March 28, 2021 Subjective Patient is struggled with considerable soreness to the musculature today. His radicular symptoms are again resolved. Physical Exam Physical Exam: Patient is in the chair at the bedside. Skin strength testing. He is obvious discomfort secondary to postoperative muscle soreness Results & Data ([facility]) Vital Signs (Past 12 Hours) Vital Signs Temp Pulse Resp BP Pulse Ox 03/30/21 08:25 36.9 C 69 16 127/76 98 03/29/21 22:27 36.8 C 88 16 101/60 98
[2021-03-30] MEDS ORDERED: KETOROLAC 30 MG/ML VIAL IV ONE (10:40)
--- NOTE | 2021-03-30 13:06 | Hospitalist Progress Note ---
Date of Service March 30, 2021 Assessment & Plan (1) S/P spinal surgery: Plan: As below (2) Cervical stenosis of spinal canal: Plan: Post op day# 2 S/P decompression C7 and fusion C5-T3 by Dr Maureen RICCI#250ml -pain management per ortho -wound management per ortho -PT/OT as appropriate -DVT prophylaxis per ortho -incentive spirometry -monitor H&H for acute blood loss anemia; pre-op Hgb: 12.9 -Hemoglobin is dropped to 9.6-we will monitor-9.3 on 03/30/2021 -Likely discharge tomorrow as per the primary (3) Diabetes mellitus, type 2: Plan: A1c: 6.5 on 03/14/21 -Hold home glycemic agents -Basal Bolus insulin per protocol. Glycemic pharmacist on board, appreciate glycemic management (4) Hypertension: Plan: -Hold lisinopril and reassess tomorrow -We will restart his usual blood pressure medications -Blood pressure is controlled (5) Hyperlipidemia: Plan: -Continue simvastatin (6) Anxiety: Plan: -Continue bupropion, duloxetine, buspirone, amitriptyline -No acute anxiety (7) GERD (gastroesophageal reflux disease): Plan: -Continue PPI (8) BPH (benign prostatic hyperplasia): Plan: -Continue tamsulosin DVT Prophylaxis -SCDs per ortho Disposition per primary service Follows with Dr Elizalde in [place] for routine care Medically stable Admission and Anticipated Discharge Date Admission Date: March 28, 2021 Subjective 03/29/2021 The patient was seen and examined in medical floor He is a status post cervical spinal surgery on of this month Has had severe pain yesterday but this morning he feels lot better His pain in the testicular area has improved too 03/30/2021 Patient was seen and examined in medical floor He is out of bed on a chair and complains to have neck pain with neck collar in situ Denies any radiation of pain and denies any significant weakness involving the extremities Review of Systems Review of Systems: All systems reviewed and are unremarkable except as noted below Musculoskeletal: Cervical pain and some pain in left testicle Physical Exam Physical Exam: Sitting on a chair without any acute distress Constitutional: well developed, well nourished, + ill appearing and + obese Eyes: PERRL, conjunctivae normal, anicteric sclerae ENMT: external ear and nose normal, oropharynx normal Neck: trachea midline, no thyromegaly Respiratory: no respiratory distress Auscultation: lungs clear to auscultation bilaterally Cardiovascular: Rate/Rhythm: regular rate and regular rhythm Heart Sounds: normal S1 and normal S2; no murmur Gastrointestinal (Abdomen): normal bowel sounds, soft, nontender, no hepatosplenomegaly Musculoskeletal: Has neck pain and the neck is in collar. No acute arthritis involving any other joint Neurologic: Alert, awake and oriented x3 Lymphatic: no cervical or axillary lymphadenopathy Results & Data Results & Data ([facility]) Vital Signs (Past 12 Hours) Vital Signs Temp Pulse Resp BP Pulse Ox 03/30/21 08:25 36.9 C 69 16 127/76 98 Laboratory Results Short CBC 03/30/21 Range/Units 05:23 WBC 6.24 (4.8-10.8) K/uL Hgb 9.3 L (14.0-18.0) g/dL Hct 29.4 L (42-52) % Plt Count 181 (130-400) K/uL BMP 03/30/21 05:23 Sodium 138 Potassium 4.3 Chloride 107 Carbon Dioxide 29 BUN 11 Creatinine 0.64 Glucose 152 H Calcium 8.6 Medications Administered Current Inpatient Medications Acetaminophen (Acetaminophen 500 Mg Tab) 1,000 mg PO Q8H PRN PRN Reason: MILD Pain Scale 1,2,3 & Pre PT Stop: 04/27/21 13:44 Last Admin: 03/30/21 07:37 Dose: 1,000 mg Documented by: Al Hydrox/Mg Hydrox/Simethicone (Aluminum/Magnesium Susp 30 Ml Udc) 30 ml PO Q6H PRN PRN Reason: Dyspepsia Stop: 04/27/21 13:44 Amitriptyline HCl (Amitriptyline Hcl 50 Mg Tab) 50 mg PO HS KEYSHA Stop: 04/27/21 20:59 Last Admin: 03/29/21 20:31 Dose: 50 mg Documented by: Bisacodyl (Bisacodyl 10 Mg Supp) 10 mg GA DAILY PRN PRN Reason: Constipation Stop: 04/29/21 07:59 Bupropion HCl (Bupropion Xl 300 Mg Tabcr) 300 mg PO QAM KEYSHA Stop: 04/28/21 08:59 Last Admin: 03/30/21 08:49 Dose: 300 mg Documented by: Buspirone HCl (Buspirone 5 Mg Tab) 10 mg PO BID [facility] Stop: 04/27/21 20:59 Last Admin: 03/30/21 08:49 Dose: 10 mg Documented by: Dextrose (Dextrose 50% 50 Ml Syringe) 25 - 50 ml IV UD PRN; Protocol PRN Reason: Hypoglycemia Protocol Stop: 04/27/21 12:29 Diphenhydramine HCl (Diphenhydramine Capsule 25 Mg Cap) 25 mg PO Q6H PRN PRN Reason: Allergic Rhinitis/Insomnia Stop: 04/27/21 13:44 Duloxetine HCl (Duloxetine Hcl 30 Mg Cap) 30 mg PO QID [facility] Stop: 04/27/21 13:44 Last Admin: 03/30/21 12:17 Dose: 30 mg Documented by: Epinephrine (Racepinephrine 2.25% Nebu Soln 0.5 Ml Vial) 0.5 ml INH NOW PRN PRN Reason: if stridor present Famotidine (Famotidine 20 Mg Tab) 20 mg PO Q12H PRN PRN Reason: Dyspepsia Stop: 04/27/21 13:44 Gabapentin (Gabapentin 800 Mg Tab) 800 mg PO QID KEYSHA Stop: 04/27/21 13:44 Last Admin: 03/30/21 12:17 Dose: 800 mg Documented by: Glucagon (Glucagon For Inj 1 Mg Vial) 1 mg IM UD PRN; Protocol PRN Reason: Hypoglycemia Protocol Stop: 04/27/21 12:29 Glucose (Glucose 40% Gel 15 Gm Tube) 15 - 30 gm PO UD PRN; Protocol PRN Reason: Hypoglycemia Protocol Stop: 04/27/21 12:29 Glucose (Glucose 10 Tabs/Tube) 4 - 8 tabs PO UD PRN; Protocol PRN Reason: Hypoglycemia Protocol Stop: 04/27/21 12:29 Hydromorphone HCl (Hydromorphone Inj 0.5 Mg/0.5 Ml Syr) 0.5 mg IV Q3H PRN PRN Reason: MOD pain (scale 4-6) & Pre PT Stop: 04/11/21 13:44 Hydromorphone HCl (Hydromorphone Inj 1 Mg/Ml Syringe) 1 mg IV Q3H PRN PRN Reason: severe pain (scale 7-10) Stop: 04/11/21 13:44 Last Admin: 03/30/21 08:00 Dose: 1 mg Documented by: Hydroxyzine HCl (Hydroxyzine Hcl 25 Mg Tab) 25 mg PO Q8H PRN PRN Reason: Anxiety Stop: 04/27/21 13:44 Dexamethasone 8 mg/ Syringe 2 mls @ 1 mls/min IV NOW PRN PRN Reason: stridor Promethazine HCl 12.5 mg/ (Sodium Chloride) 50.5 mls @ 202 mls/hr IV Q6H PRN PRN Reason: Nausea &/or Vomiting Stop: 04/27/21 13:44 Acetaminophen (Ofirmev) 1,000 mg in 100 mls @ 400 mls/hr IV Q8H PRN PRN Reason: Pain Rating 1-3 & Pre PT Stop: 03/31/21 13:44 Lorazepam (Ativan) 0.5 mg in 1 mls @ 1 mls/min IV Q8H PRN PRN Reason: Sedation/Anxiety Stop: 04/27/21 13:44 Dexamethasone 8 mg/ Syringe 2 mls @ 1 mls/min IV DAILY [facility] Stop: 04/29/21 08:59 Last Admin: 03/30/21 08:49 Dose: 1 mls/min Documented by: Influenza Virus Vaccine Quadrival (Do Not Administer Flu Vaccine) 1 ea N/A PRN PRN PRN Reason: Notification Stop: 04/27/21 13:44 Insulin Aspart (Insulin Aspart 100 Units/Ml 3 Ml Pen) 0 units SC ACHS [facility] Stop: 04/29/21 07:29 Last Admin: 03/30/21 12:20 Dose: 10 units Documented by: Lisinopril (Lisinopril 10 Mg Tab) 10 mg PO QAM [facility] Stop: 04/28/21 08:59 Lorazepam (Lorazepam 0.5 Mg Tab) 0.5 mg PO Q8H PRN PRN Reason: sedation/anxiety Stop: 04/27/21 13:44 Last Admin: 03/28/21 17:56 Dose: 0.5 mg Documented by: Magnesium Hydroxide (Magnesium Hydroxide Susp 30 Ml Udc) 30 ml PO Q24H PRN PRN Reason: Constipation Stop: 04/27/21 13:44 Metformin HCl (Metformin Hcl 500 Mg Tab) 1,000 mg PO BIDM [facility] Stop: 04/28/21 09:59 Last Admin: 03/30/21 08:49 Dose: 1,000 mg Documented by: Metoclopramide HCl (Metoclopramide Hcl Inj 5 Mg/Ml 2 Ml Vial) 10 mg IV Q6H PRN PRN Reason: Nausea &/or Vomiting Stop: 04/27/21 13:44 Miscellaneous (Carbohydrates For Hypoglycemia ) 15 - 30 gm PO UD PRN PRN Reason: Hypoglycemia Treatment Stop: 04/27/21 12:29 Miscellaneous Information (Pharmacy Glycemic Mgmt Consult) 1 ea N/A UD PRN PRN Reason: Consult Stop: 04/27/21 11:46 Naloxone HCl (Naloxone Hcl 0.4 Mg/1 Ml Vial/Carp) 0.1 mg IV Q5M PRN PRN Reason: Oversedation/respiratory dep Stop: 04/27/21 13:44 Ondansetron HCl (Ondansetron Inj 2 Mg/Ml 2 Ml Vial) 4 mg IV Q6H PRN PRN Reason: Nausea &/or Vomiting Stop: 04/27/21 13:44 Ondansetron HCl (Ondansetron 4 Mg Od Tab) 4 mg PO Q6H PRN PRN Reason: Nausea Stop: 04/27/21 13:44 Oxycodone HCl (Oxycodone Hcl Ir 30 Mg Tab (Immediate Release)) 30 mg PO QID KEYSHA Stop: 04/11/21 13:44 Last Admin: 03/30/21 12:17 Dose: 30 mg Documented by: Pantoprazole Sodium (Pantoprazole 40 Mg Tab) 40 mg PO QAM KEYSHA Stop: 04/28/21 08:59 Last Admin: 03/30/21 08:50 Dose: 40 mg Documented by: Pneumococcal Polyvalent Vaccine (Do Not Administer Pneumococcal Vaccine) 1 ea N/A PRN PRN PRN Reason: Notification Stop: 04/27/21 13:44 Senna/Docusate Sodium (Docusate Sodium/Senna 50/8.6mg Tab) 2 tab PO HS KEYSHA Stop: 04/27/21 20:59 Last Admin: 03/29/21 20:30 Dose: 2 tab Documented by: Simvastatin (Simvastatin 10 Mg Tab) 10 mg PO PM KEYSHA Stop: 04/27/21 20:59 Last Admin: 03/29/21 20:31 Dose: 10 mg Documented by: Sodium Biphosphate/Sodium Phosphate (Sod Phosphate/Sod Biphosphate Enema 132 Ml Btl) 132 ml GA ONE PRN PRN Reason: Constipation Stop: 04/27/21 13:44 Tamsulosin HCl (Tamsulosin Hcl 0.4 Mg Cap) 0.4 mg PO HS [facility] Stop: 04/27/21 20:59 Last Admin: 03/29/21 20:31 Dose: 0.4 mg Documented by:
--- NOTE | 2021-03-30 13:44 | Pharmacy Report ---
Pharmacy Glycemic Short Note 2 - Date of Service March 30, 2021 - Glycemic Short BSG Results (Last 24 hours): 03/29/21 03/29/21 03/30/21 17:08 20:29 05:23 Glucose 152 H POC Glucose 147 H 128 H 03/30/21 03/30/21 08:00 12:02 Glucose POC Glucose 137 H 151 H OUTPATIENT ANTIDIABETIC REGIMEN: * Jardiance, metformin, ozempic * A1c 6.5% ASSESSMENT: 03/30/21: * Patient received 44 units of bolus insulin yesterday in addition to metformin. * Ordered to start dexamethasone 6 mg IV daily today - will resume NPH for coverage of steroid induced hyperglycemia and tighten Novolog. * Possible discharge tomorrow Background: * 60 year old now s/p spinal surgery, POD 0. Type 2 diabetic, pharmacy consulted for glycemic management * Received steroids intraop therefore anticipate steroid induced hyperglycemia * Postop BSG 171 mg/dL - will give 35 units of NPH x 1 now to help with steroids coverage (0.3 units/kg adj bw) * Plan for novolog stress of 3 dosing with overnight checks PLAN FOR INPATIENT GLYCEMIC CONTROL: * Continue metformin 1000 mg PO BID * Basal insulin * NPH 35 units SQ qam - given with dexamethasone * Bolus insulin * NovoLog per scale ACHS or Q6hrs while NPO * Goal Range: Low 110 mg/dL - High 140 mg/dL * Correction Factor: 15 mg/dL/unit * Nutritional / Prandial insulin per carb ratio of 1 unit per 4 grams CHO consumed PLAN FOR DISCHARGE: * A1c 6.5% - goal <7% * Reasonable to continue home diabetic medications on discharge as long as no contraindications exist
[2021-03-30] MEDS: AMITRIPTYLINE HCL 50 MG TAB PO SCH (20:44)
[2021-03-30] MEDS: DOCUSATE SODIUM/SENNA 50/8.6MG TAB PO SCH (20:44)
[2021-03-30] MEDS: SIMVASTATIN 10 MG TAB PO SCH (20:45)
[2021-03-30] MEDS: TAMSULOSIN HCL 0.4 MG CAP PO SCH (20:45)
[2021-03-31] MEDS: HYDROmorphone INJ 1 MG/ML SYRINGE IV PRN ×2 (01:32→09:16)
[2021-03-31 07:35] VITALS: BP 137/76; PULSE 81; TEMP 98.4; O2SAT 93
[2021-03-31] MEDS: oxyCODONE HCL IR 30 MG TAB (IMMEDIATE RELEASE) PO SCH (08:07)
[2021-03-31] MEDS: PANTOprazole 40 MG TAB PO SCH (08:07)
[2021-03-31] MEDS: GABAPENTIN 800 MG TAB PO SCH (08:07)
[2021-03-31] MEDS: metFORMIN HCL 500 MG TAB PO SCH (08:08)
[2021-03-31] MEDS: busPIRone 5 MG TAB PO SCH (08:08)
[2021-03-31] MEDS: buPROPion XL 300 MG TABCR PO SCH (08:08)
[2021-03-31] MEDS: dexAMETHasone 8 MG in SYRINGE 0 ML IV SCH (08:08)
[2021-03-31] MEDS: DULoxetine HCL 30 MG CAP PO SCH (08:08)
[2021-03-31] MEDS: INSULIN ASPART 100 UNITS/ML 3 ML PEN SC SCH (08:54)
[2021-03-31] MEDS ORDERED: NovoLIN-N (NPH) PER UNIT CHARGE SQ SCH ×2 (09:00)
--- NOTE | 2021-03-31 11:21 | Discharge Summary ---
Date of Service March 31, 2021 Admission HPI Per Admitting Provider This is a 60-year-old male presents with car persistent neck and arm pain after failing course of nonoperative care is here for surgical invention. Principal Diagnosis Cervical spinal stenosis with radiculopathy Discharge Data Allergies Allergy/AdvReac Type Severity Reaction Status Date / Time No Known Allergies Allergy Verified 03/28/21 06:31 Consultations 03/28/21 13:45 Consult Hospitalist Routine Procedures Performed Operation Date: 03/28/21 07:45 Actual Procedures p C7-T1 Posterior Cervical Decompression, C5-T3 Fusion, Spinal Cord Monitoring(Not Applicable) - Allan Reddy DO Ordered Studies 03/28/21 07:45 FL cervical 2-3V Routine Hospital Course (1) Cervical stenosis of spinal canal: Patient 1 posterior cervical decompression fusion trial as well as taken orthopedic for postoperative. Postop day 1 his arm symptoms markedly improved. Progressive postop day #2 on postop day #3 JOHN drain was still significant. Strength intact. Pain controlled. He subsequently is discharged home with his drain. Discharge orders instructions from the chart for further review. Total Time Total Time Spent Total Time Spent (In Minutes): 20 minutes Discharge Plan Discharge Items Patient Disposition: Home - Self-Care Reason For Visit: Spinal Stenosis, Cervical Region Discharge Diagnosis: Cervical spinal stenosis with radiculopathy Activity: As commented below Non-emergency contact: Primary Care Provider Call non-emergency contact if: you have any medication questions Follow-up/Referrals: Hemanth Elizalde D.O. [Primary Care Provider] - Diet: Regular Addtl Attending Provider Instructions: ACTIVITY RECOMMENDATIONS: SELF CARE INSTRUCTIONS AFTER CERVICAL FUSIONS 1. No smoking. Smoking drastically decreases the chance of a solid fusion. 2. No bending, lifting more than 5 pounds, or twisting (roll like a log when turning in bed). 3. You may shower 3 days after surgery. Thoroughly dry wound. Do not soak in the tub. 4. Cervical collar: Must be worn at all times including sleeping. You may remove the brace only to bath, eat and if you are sitting in a recliner. 5. Please walk as much as you can for exercise. Gradually increase the distance that you walk as your endurance increases. SPECIAL CARE INSTRUCTIONS: VERY IMPORTANT TO READ AND REVIEW A. Do not take any anti-inflammatory medications (i.e. Indocin, Advil, Aspirin, Naprosyn, Aleve, Motrin, etc.) as these may inhibit the chance of a solid fusion. Tylenol is okay to take. B. Your surgical incision has been closed with a cosmetic suture under the skin that will dissolve in about 6 weeks. In 14 days, you can use a pair of clean scissors and cut the suture that is left outside of the skin at the ends of your incision. C. Complications are uncommon, but please contact us if you have any signs or symptoms of: 1. wound infection (fever higher than 102.5 degrees F, redness, separation of wound, drainage, or increasing pain from the incision) 2. blood clots in legs (pain, swelling, redness and warmth in legs) 3. urinary tract infection (fever higher than 102.5 degrees, burning upon urination or increased frequency of urination) 4. nerve problems (inability to walk on your toes or heels, numbness, loss of bowel or bladder control) 5. any other symptoms that concern you. D. Please call the office at if you have any concerns or questions about your operation or recovery. MANAGING PAIN AFTER SPINAL SURGERY 1. Narcotic medication is intended for short-term use and will be provided for surgical pain. Surgical pain usually lasts for a period of 4-6 weeks. Narcotic medication includes Percocet, Vicodin, Darvocet, Tylenol #3 or Lortab. 2. Longer-term pain is more appropriately treated with non-narcotic medication such as Tylenol ES. 3. Muscle spasm is not appropriately treated with narcotics. Muscle relaxers such as Soma, Flexeril or Skelaxin can be used along with Tylenol ES. 4. Remember that we all live with some "aches and pains". This is not unusual or uncommon after an injury or as we get older. 5. We will provide appropriate medication within the normal guidelines of their prescribed use. We will also be very cautious and aware of potential abuse and extended duration of patients' medication needs. 6. Please allow 2-3 days to process refills. Prescriptions will not be mailed but must be picked up at the office. FOLLOW UP VISIT: Keep your scheduled follow-up appointment. Any questions, please call the office at . Pending Studies at Discharge: No Stand-Alone Forms: My [facility], Smoking Cessation Medications and DC Order Prescriptions: Continued metformin 500 mg Tablet 1,000 mg PO BID RF: 0 gabapentin 800 mg Tablet 800 mg PO QID RF: 0 oxycodone 30 mg Tablet 30 mg PO QID RF: 0 lisinopril 20 mg Tablet 10 mg PO QAM RF: 0 simvastatin 10 mg Tablet 10 mg PO PM RF: 0 pioglitazone [Actos] 45 mg Tablet 45 mg PO QAM RF: 0 amitriptyline 50 mg Tablet 50 mg PO HS RF: 0 lorazepam 0.5 mg Tablet 0.5 mg PO TID PRN (Reason: PANIC ATTACKS) RF: 0 tamsulosin 0.4 mg Capsule 0.4 mg PO HS RF: 0 pantoprazole 40 mg Tablet,Delayed Release (Dr/Ec) 40 mg PO QAM RF: 0 buspirone 10 mg Tablet 10 mg PO BID RF: 0 bupropion HCl 300 mg Tablet Extended Release 24 Hr 300 mg PO QAM RF: 0 duloxetine 30 mg Capsule,Delayed Release(Dr/Ec) 30 mg PO QID RF: 0 cholecalciferol (vitamin D3) 25 mcg (1,000 unit) Tablet 1,000 unit PO QAM RF: 0 Jardiance 25 mg Tablet 25 mg PO QAM RF: 0 Ozempic 0.25 mg or 0.5 mg(2 mg/1.5 mL) Pen Injector 0.5 mg SUBCUT WK RF: 0 acetaminophen [Tylenol Extra Strength] 500 mg Tablet 1,000 mg PO QID PRN (Reason: Headache) RF: 0 Discharge Orders: Discharge Order (Routine); Ordered 03/31/21 Ordered By: Allan Reddy Admission Data Admit Date/Time: 03/28/21 11:21 Attending Provider: Allan Reddy Admit Provider: Allan Reddy Primary Care Provider: Hemanth Elizalde Other Providers: Nieves Chen ; Burt Jonas
--- NOTE | 2021-03-31 11:50 | Hospitalist Progress Note ---
Date of Service March 31, 2021 Assessment & Plan (1) S/P spinal surgery: Plan: As below (2) Cervical stenosis of spinal canal: Plan: Post op day# 2 S/P decompression C7 and fusion C5-T3 by Dr Maureen RICCI#250ml -pain management per ortho -wound management per ortho -PT/OT as appropriate -DVT prophylaxis per ortho -incentive spirometry -monitor H&H for acute blood loss anemia; pre-op Hgb: 12.9 -Hemoglobin is dropped to 9.6-we will monitor-9.3 on 03/30/2021 -His neck pain is reasonably controlled without any other associated symptoms -He will be discharged home this afternoon from the primary service (3) Diabetes mellitus, type 2: Plan: A1c: 6.5 on 03/14/21 -Hold home glycemic agents -Basal Bolus insulin per protocol. Glycemic pharmacist on board, appreciate glycemic management (4) Hypertension: Plan: -Hold lisinopril and reassess tomorrow -We will restart his usual blood pressure medications -Blood pressure is controlled (5) Hyperlipidemia: Plan: -Continue simvastatin (6) Anxiety: Plan: -Continue bupropion, duloxetine, buspirone, amitriptyline -No acute anxiety (7) GERD (gastroesophageal reflux disease): Plan: -Continue PPI (8) BPH (benign prostatic hyperplasia): Plan: -Continue tamsulosin DVT Prophylaxis -SCDs per ortho Disposition per primary service Follows with Dr Elizalde in [place], [place] for routine care Medically stable to be discharged today Admission and Anticipated Discharge Date Admission Date: March 28, 2021 Subjective 03/29/2021 The patient was seen and examined in medical floor He is a status post cervical spinal surgery on of this month Has had severe pain yesterday but this morning he feels lot better His pain in the testicular area has improved too 03/30/2021 Patient was seen and examined in medical floor He is out of bed on a chair and complains to have neck pain with neck collar in situ Denies any radiation of pain and denies any significant weakness involving the extremities 03/31/2021 The patient was seen in the medical floor He has been feeling much better with minimal pain in the neck Denies any other symptoms Review of Systems Review of Systems: All systems reviewed and are unremarkable except as noted below Musculoskeletal: Cervical pain and some pain in left testicle Physical Exam Physical Exam: Sitting on a chair without any acute distress Constitutional: well developed, well nourished, + ill appearing and + obese Eyes: PERRL, conjunctivae normal, anicteric sclerae ENMT: external ear and nose normal, oropharynx normal Neck: trachea midline, no thyromegaly Respiratory: no respiratory distress Auscultation: lungs clear to auscultation bilaterally Cardiovascular: Rate/Rhythm: regular rate and regular rhythm Heart Sounds: normal S1 and normal S2; no murmur Gastrointestinal (Abdomen): normal bowel sounds, soft, nontender, no hepatosplenomegaly Musculoskeletal: Has neck pain but no other acute arthritis Neurologic: Alert, awake and oriented x3. No focal sensory or motor deficit appreciated Lymphatic: no cervical or axillary lymphadenopathy Results & Data Results & Data ([facility]) Vital Signs (Past 12 Hours) Vital Signs Temp Pulse Pulse Resp BP Pulse Ox 03/31/21 11:22 36.9 C 77 81 18 137/76 93 03/31/21 07:34 36.9 C 81 18 137/76 93 Medications Administered Current Inpatient Medications Acetaminophen (Acetaminophen 500 Mg Tab) 1,000 mg PO Q8H PRN PRN Reason: MILD Pain Scale 1,2,3 & Pre PT Stop: 04/27/21 13:44 Last Admin: 03/30/21 07:37 Dose: 1,000 mg Documented by: Al Hydrox/Mg Hydrox/Simethicone (Aluminum/Magnesium Susp 30 Ml Udc) 30 ml PO Q6H PRN PRN Reason: Dyspepsia Stop: 04/27/21 13:44 Amitriptyline HCl (Amitriptyline Hcl 50 Mg Tab) 50 mg PO HS KEYSHA Stop: 04/27/21 20:59 Last Admin: 03/30/21 20:44 Dose: 50 mg Documented by: Bisacodyl (Bisacodyl 10 Mg Supp) 10 mg OK DAILY PRN PRN Reason: Constipation Stop: 04/29/21 07:59 Bupropion HCl (Bupropion Xl 300 Mg Tabcr) 300 mg PO QAM KEYSHA Stop: 04/28/21 08:59 Last Admin: 03/31/21 08:08 Dose: 300 mg Documented by: Buspirone HCl (Buspirone 5 Mg Tab) 10 mg PO BID REPLACED BY [facility] Stop: 04/27/21 20:59 Last Admin: 03/31/21 08:08 Dose: 10 mg Documented by: Dextrose (Dextrose 50% 50 Ml Syringe) 25 - 50 ml IV UD PRN; Protocol PRN Reason: Hypoglycemia Protocol Stop: 04/27/21 12:29 Diphenhydramine HCl (Diphenhydramine Capsule 25 Mg Cap) 25 mg PO Q6H PRN PRN Reason: Allergic Rhinitis/Insomnia Stop: 04/27/21 13:44 Duloxetine HCl (Duloxetine Hcl 30 Mg Cap) 30 mg PO QID KEYSHA Stop: 04/27/21 13:44 Last Admin: 03/31/21 08:08 Dose: 30 mg Documented by: Epinephrine (Racepinephrine 2.25% Nebu Soln 0.5 Ml Vial) 0.5 ml INH NOW PRN PRN Reason: if stridor present Famotidine (Famotidine 20 Mg Tab) 20 mg PO Q12H PRN PRN Reason: Dyspepsia Stop: 04/27/21 13:44 Gabapentin (Gabapentin 800 Mg Tab) 800 mg PO QID REPLACED BY [facility] Stop: 04/27/21 13:44 Last Admin: 03/31/21 08:07 Dose: 800 mg Documented by: Glucagon (Glucagon For Inj 1 Mg Vial) 1 mg IM UD PRN; Protocol PRN Reason: Hypoglycemia Protocol Stop: 04/27/21 12:29 Glucose (Glucose 40% Gel 15 Gm Tube) 15 - 30 gm PO UD PRN; Protocol PRN Reason: Hypoglycemia Protocol Stop: 04/27/21 12:29 Glucose (Glucose 10 Tabs/Tube) 4 - 8 tabs PO UD PRN; Protocol PRN Reason: Hypoglycemia Protocol Stop: 04/27/21 12:29 Hydromorphone HCl (Hydromorphone Inj 0.5 Mg/0.5 Ml Syr) 0.5 mg IV Q3H PRN PRN Reason: MOD pain (scale 4-6) & Pre PT Stop: 04/11/21 13:44 Hydromorphone HCl (Hydromorphone Inj 1 Mg/Ml Syringe) 1 mg IV Q3H PRN PRN Reason: severe pain (scale 7-10) Stop: 04/11/21 13:44 Last Admin: 03/31/21 09:16 Dose: 1 mg Documented by: Hydroxyzine HCl (Hydroxyzine Hcl 25 Mg Tab) 25 mg PO Q8H PRN PRN Reason: Anxiety Stop: 04/27/21 13:44 Dexamethasone 8 mg/ Syringe 2 mls @ 1 mls/min IV NOW PRN PRN Reason: stridor Promethazine HCl 12.5 mg/ (Sodium Chloride) 50.5 mls @ 202 mls/hr IV Q6H PRN PRN Reason: Nausea &/or Vomiting Stop: 04/27/21 13:44 Acetaminophen (Ofirmev) 1,000 mg in 100 mls @ 400 mls/hr IV Q8H PRN PRN Reason: Pain Rating 1-3 & Pre PT Stop: 03/31/21 13:44 Lorazepam (Ativan) 0.5 mg in 1 mls @ 1 mls/min IV Q8H PRN PRN Reason: Sedation/Anxiety Stop: 04/27/21 13:44 Dexamethasone 8 mg/ Syringe 2 mls @ 1 mls/min IV DAILY REPLACED BY [facility] Stop: 04/29/21 08:59 Last Admin: 03/31/21 08:08 Dose: 1 mls/min Documented by: Influenza Virus Vaccine Quadrival (Do Not Administer Flu Vaccine) 1 ea N/A PRN PRN PRN Reason: Notification Stop: 04/27/21 13:44 Insulin Aspart (Insulin Aspart 100 Units/Ml 3 Ml Pen) 0 units SC ACHS REPLACED BY [facility] Stop: 04/29/21 07:29 Last Admin: 03/31/21 08:54 Dose: 20 units Documented by: Lisinopril (Lisinopril 10 Mg Tab) 10 mg PO QAM REPLACED BY [facility] Stop: 04/28/21 08:59 Lorazepam (Lorazepam 0.5 Mg Tab) 0.5 mg PO Q8H PRN PRN Reason: sedation/anxiety Stop: 04/27/21 13:44 Last Admin: 03/28/21 17:56 Dose: 0.5 mg Documented by: Magnesium Hydroxide (Magnesium Hydroxide Susp 30 Ml Udc) 30 ml PO Q24H PRN PRN Reason: Constipation Stop: 04/27/21 13:44 Metformin HCl (Metformin Hcl 500 Mg Tab) 1,000 mg PO BIDM REPLACED BY [facility] Stop: 04/28/21 09:59 Last Admin: 03/31/21 08:08 Dose: 1,000 mg Documented by: Metoclopramide HCl (Metoclopramide Hcl Inj 5 Mg/Ml 2 Ml Vial) 10 mg IV Q6H PRN PRN Reason: Nausea &/or Vomiting Stop: 04/27/21 13:44 Miscellaneous (Carbohydrates For Hypoglycemia ) 15 - 30 gm PO UD PRN PRN Reason: Hypoglycemia Treatment Stop: 04/27/21 12:29 Miscellaneous Information (Pharmacy Glycemic Mgmt Consult) 1 ea N/A UD PRN PRN Reason: Consult Stop: 04/27/21 11:46 Naloxone HCl (Naloxone Hcl 0.4 Mg/1 Ml Vial/Carp) 0.1 mg IV Q5M PRN PRN Reason: Oversedation/respiratory dep Stop: 04/27/21 13:44 Ondansetron HCl (Ondansetron Inj 2 Mg/Ml 2 Ml Vial) 4 mg IV Q6H PRN PRN Reason: Nausea &/or Vomiting Stop: 04/27/21 13:44 Ondansetron HCl (Ondansetron 4 Mg Od Tab) 4 mg PO Q6H PRN PRN Reason: Nausea Stop: 04/27/21 13:44 Oxycodone HCl (Oxycodone Hcl Ir 30 Mg Tab (Immediate Release)) 30 mg PO QID KEYSHA Stop: 04/11/21 13:44 Last Admin: 03/31/21 08:07 Dose: 30 mg Documented by: Pantoprazole Sodium (Pantoprazole 40 Mg Tab) 40 mg PO QAM KEYSHA Stop: 04/28/21 08:59 Last Admin: 03/31/21 08:07 Dose: 40 mg Documented by: Pneumococcal Polyvalent Vaccine (Do Not Administer Pneumococcal Vaccine) 1 ea N /A PRN PRN PRN Reason: Notification Stop: 04/27/21 13:44 Senna/Docusate Sodium (Docusate Sodium/Senna 50/8.6mg Tab) 2 tab PO HS KEYSHA Stop: 04/27/21 20:59 Last Admin: 03/30/21 20:44 Dose: 2 tab Documented by: Simvastatin (Simvastatin 10 Mg Tab) 10 mg PO PM KEYSHA Stop: 04/27/21 20:59 Last Admin: 03/30/21 20:45 Dose: 10 mg Documented by: Sodium Biphosphate/Sodium Phosphate (Sod Phosphate/Sod Biphosphate Enema 132 Ml Btl) 132 ml OK ONE PRN PRN Reason: Constipation Stop: 04/27/21 13:44 Tamsulosin HCl (Tamsulosin Hcl 0.4 Mg Cap) 0.4 mg PO [facility] Stop: 04/27/21 20:59 Last Admin: 03/30/21 20:45 Dose: 0.4 mg Documented by:
== END 2021-03-31 11:50 | disposition home or self-care (01) | DRG 472 ==
LOC: ASU 05:42 → 3E 11:21